=== PATIENT | female | born 1990 | race Caucasian/White ===

== ENCOUNTER 2017-01-24 17:35 | Emergency (ER) | payer OTHER ==
--- NOTE | 2017-01-24 18:08 | EDM.PDOC ---
ED HPI RENAL/ - General Chief Complaint: Genitourinary Problem Stated Complaint: BLEEDING/BACK PAIN Time Seen by Provider: 01/24/17 18:00 Source of Information: Reports: Patient History Limitations: Reports: No limitations - History of Present Illness INITIAL COMMENTS - FREE TEXT/NARRATIVE: HISTORY AND PHYSICAL: History of present illness: [Patient comes to the ER complaining of blood in her urine and low back and abdominal pain. Her urine was cloudy several days ago but this morning was clemencia blood. States that she has not had a UTI for several years. She does not have a local primary care provider established yet in [place]. She's not had fever or chills, no cough, shortness of breath or difficulty breathing. Her appetite has been normal. She's had no nausea or vomiting. No change in her stools. She's not had urinary urgency or frequency. Her period is 5 days late based on dates. Patient is on Suboxone which is prescribed and managed a specialist in [place].] Review of systems: As per history of present illness and below otherwise all systems reviewed and negative. Past medical history: As per history of present illness and as reviewed below otherwise noncontributory. Surgical history: As per history of present illness and as reviewed below otherwise noncontributory. Social history: No reported history of drug or alcohol abuse. Family history: As per history of present illness and as reviewed below otherwise noncontributory. Physical exam: HEENT: Atraumatic, normocephalic. mucous membranes pink and moist. Lungs: Clear to auscultation, breath sounds equal bilaterally, chest nontender. Heart: S1S2, regular rate and rhythm., negative for clicks, rubs, or JVD. Abdomen: Soft, nondistended. Tender with palpation over suprapubic area. Negative for masses or hepatosplenomegaly. Negative for costovertebral tenderness. Pelvis: Stable nontender. Genitourinary: Deferred. Rectal: Deferred. Extremities: Atraumatic, negative for cords or calf pain. Neurovascular unremarkable. Neuro: Awake, alert, oriented. Motor and sensory unremarkable throughout. Exam nonfocal. Diagnostics: [Urinalysis, urine culture, urine ] Impression: [UTI] Plan: [Urinalysis shows positive nitrites and presents of bacteria. Treat with Bactrim DS twice a day for the next 7 days. Urine culture is pending. Bactrim DS #14 sig: One by mouth twice a day for 7 days no refills. She is urged to use fluids and establish care with local primary care provider. All her questions are answered and concerns are addressed.] Definitive disposition and diagnosis as appropriate pending reevaluation and review of above. - Related Data Allergies/ADRs: Allergies Allergy/AdvReac Type Severity Reaction Status Date / Time Penicillins Allergy Hives Verified 01/24/17 18:10 Home Meds: Home Meds Buprenorphine/Naloxone [Suboxone 2 MG-0.5 MG] 1 tab PO BID 08/01/15 [History] Escitalopram [Lexapro] 1 tab PO DAILY 08/01/15 [History] Social & Family History - Tobacco Use Smoking Status *Q: Never Smoker - Recreational Drug Use Recreational Drug Use: Yes Drug Use in Last 12 Months: No Recreational Drug Type: Reports: Opium ED ROS GENERAL - Review of Systems Review Of Systems: ROS reveals no pertinent complaints other than HPI. ED EXAM, RENAL/ - Physical Exam Exam: See Below Course - Vital Signs Last Recorded V/S: Last Vital Signs Temp 97.9 F 01/24/17 18:58 Pulse 67 01/24/17 18:58 Resp 16 01/24/17 18:58 BP 116/77 01/24/17 18:58 Pulse Ox 97 01/24/17 18:58 - Orders/Labs/Meds Orders: Active Orders 24 hr Category Date Time Status CULTURE URINE [RM] Stat Lab 01/24/17 17:55 Received UA W/MICROSCOPIC [URIN] Stat Lab 01/24/17 17:55 Results Labs: Laboratory Tests 01/24/17 01/24/17 Range/Units 17:55 17:55 Urine Color BROWN Urine Appearance CLOUDY Urine pH 6.5 (5.0-8.0) Ur Specific [place] >= 1.030 (1.001-1.035) Urine Protein >=300 (NEGATIVE) mg/dL Urine Glucose (UA) NEGATIVE (NEGATIVE) mg/dL Urine Ketones TRACE H (NEGATIVE) mg/dL Urine Occult Blood LARGE H (NEGATIVE) Urine Nitrite POSITIVE H (NEGATIVE) Urine Bilirubin SMALL H (NEGATIVE) Urine Urobilinogen 1.0 (<2.0) EU/dL Ur Leukocyte Esterase SMALL (NEGATIVE) Urine HCG, Qual NEGATIVE (NEGATIVE) Departure - Departure Time of Disposition: 18:50 Disposition: Home, Self-Care 01 Condition: good Clinical Impression: UTI (urinary tract infection) Qualifiers: Urinary tract infection type: site unspecified Hematuria presence: without hematuria Qualified Code(s): N39.0 - Urinary tract infection, site not specified Instructions: Urinary Tract Infection, Adult, [id number] Referrals: PCP,None [Primary Care Provider] - Forms: ED Department Discharge Additional Instructions: The following information is given to patients seen in the emergency department who are being discharged to home. This information is to outline your options for follow-up care. We provide all patients seen in our emergency department with a follow-up referral. The need for follow-up, as well as the timing and circumstances, are variable depending upon the specifics of your emergency department visit. If you don't have a primary care physician on staff, we will provide you with a referral. We always advise you to contact your personal physician following an emergency department visit to inform them of the circumstance of the visit and for follow-up with them and/or the need for any referrals to a consulting specialist. The emergency department will also refer you to a specialist when appropriate. This referral assures that you have the opportunity for follow-up care with a specialist. All of these measure are taken in an effort to provide you with optimal care, which includes your follow-up. Under all circumstances we always encourage you to contact your private physician who remains a resource for coordinating your care. When calling for follow-up care, please make the office aware that this follow-up is from your recent emergency room visit. If for any reason you are refused follow-up, please contact the [facility] emergency department at and asked to speak to the emergency department charge nurse. [address] [id number] Establish care at the clinic listed above. Take antibiotics as prescribed. Push fluids. Return to ER as needed and as discussed. - My Orders Last 24 Hours: My Active Orders 01/24/17 17:55 CULTURE URINE [RM] Stat UA W/MICROSCOPIC [URIN] Stat - Assessment/Plan Last 24 Hours: My Active Orders 01/24/17 17:55 CULTURE URINE [RM] Stat UA W/MICROSCOPIC [URIN] Stat
[2017-01-24 19:01] VITALS: BP 116/77
== END 2017-01-24 19:01 | disposition home or self-care (01) ==
LOC: MW.ED 17:35
DX: N39.0 Urinary tract infection, site not specified (principal); Z88.0 Allergy status to penicillin; Z79.899 Other long term (current) drug therapy
CPT/HCPCS: 81001; 81025; 87086; 99283

== ENCOUNTER → 2017-03-10 | Outpatient (CLI) | payer OTHER | LOC: MW.CHFP 15:16 | PROVIDERS: ATTEND Family Medicine | DX: R10.2 Pelvic and perineal pain (principal) | CPT/HCPCS: 81003; 87086 ==

== ENCOUNTER → 2017-03-18 | Outpatient (CLI) | payer OTHER | LOC: MW.CHFP 14:52 | PROVIDERS: ATTEND Family Medicine | DX: R10.2 Pelvic and perineal pain (principal) | CPT/HCPCS: 81001; 87086 ==

== ENCOUNTER → 2017-03-30 | Outpatient (CLI) | payer OTHER ==
[2017-03-30 13:54] LABS: CHLORIDE,CL 108 mmol/L (98-110); SODIUM,NA 142 mmol/L (136-146)
== END | disposition home or self-care (01) ==
LOC: MW.CHFP 12:56
PROVIDERS: ATTEND Family Medicine
DX: Z00.00 Encounter for general adult medical examination without abnormal findings (principal); N92.6 Irregular menstruation, unspecified; K58.9 Irritable bowel syndrome, unspecified
CPT/HCPCS: 36415; 80053; 80061; 82670; 83001; 83002; 84144; 84443; 85027

== ENCOUNTER 2019-02-01 09:02 | Emergency (ER) | payer BC, OTHER ==
[2019-02-01] MEDS ORDERED: Phenazopyridine 200 MG Tab PO ONE (09:26)
--- NOTE | 2019-02-01 09:53 | EDM.PDOC ---
ED HPI GENERAL MEDICAL PROBLEM - General Chief Complaint: Genitourinary Problem Stated Complaint: UTI Time Seen by Provider: 02/01/19 09:09 Source of Information: Reports: Patient History Limitations: Reports: No Limitations - History of Present Illness INITIAL COMMENTS - FREE TEXT/NARRATIVE: History of present illness: []Patient started having discomfort with urination, blood in frequency this morning. She's had UTIs in the past and it feels the same. She denies measuring any fevers or chills but feels feverish. Denies , nausea, vomiting or diarrhea. She denies , vomiting diarrhea or nausea Review of systems: As per history of present illness and below otherwise all systems reviewed and negative. Past medical history: As per history of present illness and as reviewed below otherwise noncontributory. Surgical history: As per history of present illness and as reviewed below otherwise noncontributory. Social history: No reported history of drug or alcohol abuse. Family history: As per history of present illness and as reviewed below otherwise noncontributory. Physical exam: General: Well developed, well nourished in NAD HEENT: Atraumatic, normocephalic, pupils reactive, negative for conjunctival pallor or scleral icterus, mucous membranes moist, throat clear, neck supple, nontender, trachea midline. Lungs: Clear to auscultation, breath sounds equal bilaterally, chest nontender. Heart: S1S2, regular, negative for clicks, rubs, or JVD. Abdomen: NABS, Soft, nondistended, nontender. Negative for masses or hepatosplenomegaly. Negative for costovertebral tenderness. Pelvis: Stable nontender. Genitourinary: Deferred. Rectal: Deferred. Extremities: Atraumatic, negative for cords or calf pain. Neurovascular unremarkable. Neuro: Awake, alert, oriented. Cranial nerves II through XII unremarkable. Cerebellum unremarkable. Motor and sensory unremarkable throughout. Exam nonfocal. Skin:warm and dry Diagnostics: UA, urine culture, hCG Therapeutics: Perineum ED Course: Stable Impression: UTI Prescriptions: Bactrim, Pyridium Plan: Increase fluids, Tylenol, Motrin, follow-up with primary care. Take meds as directed. Definitive disposition and diagnosis as appropriate pending reevaluation and review of above. Pelvic Pain Score (Numeric/FACES): 3 - Related Data Allergies Allergy/AdvReac Type Severity Reaction Status Date / Time Penicillins Allergy Hives Verified 01/24/17 18:10 Home Meds: Home Meds Buprenorphine/Naloxone [Suboxone 2 MG-0.5 MG] 1 tab PO BID 08/01/15 [History] Escitalopram [Lexapro] 1 tab PO DAILY 08/01/15 [History] Dicyclomine [Bentyl] 20 mg PO QIDACANDBED 02/01/19 [History] Phenazopyridine HCl [Pyridium] 200 mg PO TID #9 tablet 02/01/19 [Rx] Sulfamethoxazole/Trimethoprim [Bactrim Ds Tablet] 1 each PO BID #20 tablet 02/01 [Rx] Past Medical History HEENT History: Reports: None Cardiovascular History: Reports: None Respiratory History: Reports: None Gastrointestinal History: Reports: Other (See Below) Other Gastrointestinal History: Ulcerative Colitis as a young kid Genitourinary History: Reports: None TOE STRIPPER History: Reports: Musculoskeletal History: Reports: None Neurological History: Reports: None Psychiatric History: Reports: Addiction, Other (See Below) Other Psychiatric History: History of addiction- currently taking subutex Endocrine/Metabolic History: Reports: None Hematologic History: Reports: None Immunologic History: Reports: None Oncologic (Cancer) History: Reports: None Dermatologic History: Reports: None - Infectious Disease History Infectious Disease History: Reports: None - Past Surgical History Head Surgeries/Procedures: Reports: None HEENT Surgical History: Reports: None Cardiovascular Surgical History: Reports: None Respiratory Surgical History: Reports: None Endocrine Surgical History: Reports: None Neurological Surgical History: Reports: None Musculoskeletal Surgical History: Reports: None Dermatological Surgical History: Reports: None Social & Family History - Family History Family Medical History: Noncontributory - Caffeine Use Caffeine Use: Reports: None - Recreational Drug Use Recreational Drug Use: No ED ROS GENERAL - Review of Systems Review Of Systems: ROS reveals no pertinent complaints other than HPI. ED EXAM, RENAL/ - Physical Exam Exam: See Below (See history of present illness) Course - Vital Signs Last Recorded V/S: Last Vital Signs Temp 97.1 F 02/01/19 09:21 Pulse 83 02/01/19 09:21 Resp 15 02/01/19 09:21 BP 104/71 02/01/19 09:21 Pulse Ox 99 02/01/19 09:21 - Orders/Labs/Meds Orders: Active Orders 24 hr Category Date Time Status CULTURE URINE [RM] Routine Lab 02/01/19 09:12 Received Labs: Laboratory Tests 02/01/19 02/01/19 Range/Units 09:12 09:12 Urine Color RED Urine Appearance HAZY Urine pH 6.0 (5.0-8.0) Ur Specific [place] >= 1.030 (1.001-1.035) Urine Protein 100 H (NEGATIVE) mg/dL Urine Glucose (UA) NEGATIVE (NEGATIVE) mg/dL Urine Ketones NEGATIVE (NEGATIVE) mg/dL Urine Occult Blood LARGE H (NEGATIVE) Urine Nitrite NEGATIVE (NEGATIVE) Urine Bilirubin SMALL H (NEGATIVE) Urine Ictotest NEGATIVE Urine Urobilinogen 1.0 (<2.0) EU/dL Ur Leukocyte Esterase SMALL H (NEGATIVE) Urine RBC TOO NUMEROUS TO CT H (0-2/HPF) Urine WBC 8-10 (0-5/HPF) Ur Epithelial Cells OCCASIONAL (NONE-FEW) Urine Bacteria RARE (NEGATIVE) Urinalysis Comment Urine HCG, Qual NEGATIVE (NEGATIVE) Meds: Medications Discontinued Medications Generic Name Dose Route Start Last Admin Trade Name Freq PRN Reason Stop Dose Admin Phenazopyridine HCl 200 mg 02/01/19 09:26 02/01/19 09:31 Pyridium PO 02/01/19 09:27 200 mg ONETIME ONE Administration Departure - Departure Time of Disposition: 09:52 Disposition: Home, Self-Care 01 Condition: Good Clinical Impression: UTI (urinary tract infection) Qualifiers: Urinary tract infection type: site unspecified Hematuria presence: with hematuria Qualified Code(s): N39.0 - Urinary tract infection, site not specified - Discharge Information *PRESCRIPTION DRUG MONITORING PROGRAM REVIEWED*: No *COPY OF PRESCRIPTION DRUG MONITORING REPORT IN PATIENT TOSHIA: No Prescriptions: Phenazopyridine HCl [Pyridium] 200 mg PO TID #9 tablet Sulfamethoxazole/Trimethoprim [Bactrim Ds Tablet] 1 each PO BID #20 tablet Referrals: Chante Oscar MD [Primary Care Provider] - Forms: ED Department Discharge Additional Instructions: The following information is given to patients seen in the emergency department who are being discharged to home. This information is to outline your options for follow-up care. We provide all patients seen in our emergency department with a follow-up referral. The need for follow-up, as well as the timing and circumstances, are variable depending upon the specifics of your emergency department visit. If you don't have a primary care physician on staff, we will provide you with a referral. We always advise you to contact your personal physician following an emergency department visit to inform them of the circumstance of the visit and for follow-up with them and/or the need for any referrals to a consulting specialist. The emergency department will also refer you to a specialist when appropriate. This referral assures that you have the opportunity for follow-up care with a specialist. All of these measure are taken in an effort to provide you with optimal care, which includes your follow-up. Under all circumstances we always encourage you to contact your private physician who remains a resource for coordinating your care. When calling for follow-up care, please make the office aware that this follow-up is from your recent emergency room visit. If for any reason you are refused follow-up, please contact the [facility] Emergency Department at and asked to speak to the emergency department charge nurse. Take meds as directed, follow up with your primary care physician, return to ER if symptoms worsen or change. [facility] [address] [place] [id number] - My Orders Last 24 Hours: My Active Orders 02/01/19 09:12 CULTURE URINE [RM] Routine - Assessment/Plan Last 24 Hours: My Active Orders 02/01/19 09:12 CULTURE URINE [RM] Routine
[2019-02-01 10:13] VITALS: BP 123/63
== END 2019-02-01 10:07 | disposition home or self-care (01) ==
LOC: MW.ED 09:02
DX: N39.0 Urinary tract infection, site not specified (principal); Z79.899 Other long term (current) drug therapy; Z88.0 Allergy status to penicillin
CPT/HCPCS: 81001; 81025; 87086; 87088; 87186; 99283; A9270

== ENCOUNTER 2020-05-03 05:47 | Emergency (ER) | payer BC ==
[2020-05-03] MEDS ORDERED: Sodium Chloride 0.9% 1,000 ML IV ONE (06:00)
[2020-05-03] MEDS ORDERED: Sodium Chloride 0.9% 10 ML Syringe FLUSH PRN (06:00)
[2020-05-03] MEDS ORDERED: Ondansetron 4 MG/2 ML SDV IVPUSH ONE (06:00)
[2020-05-03] MEDS ORDERED: Ketorolac 15 MG/ML SDV IVPUSH ONE (06:00)
[2020-05-03] MEDS ORDERED: Sodium Chloride 0.9% 2.5 ML Syringe FLUSH PRN (06:00)
--- NOTE | 2020-05-03 06:07 | EDM.PDOC ---
ED HPI GENERAL MEDICAL PROBLEM - General Chief Complaint: Flank Pain Stated Complaint: KIDNEY PAIN Time Seen by Provider: 05/03/20 05:49 Source of Information: Reports: Patient History Limitations: Reports: No Limitations - History of Present Illness INITIAL COMMENTS - FREE TEXT/NARRATIVE: History of present illness: [Patient is 29-year-old female who presents with multiple complaints. She states that she was treated with Macrobid for a UTI about 2 weeks ago but does not think that her symptoms never completely resolved and is concerned about recurrent UTI. She complains of fever since yesterday with associated headache and body aches. Also complains of some bilateral lower back pain and hematuria and dysuria. The dysuria recurred yesterday. Denies chest pain. States that she had a mild cold last week but all her URI symptoms have resolved. Denies any known COVID-19 exposure. Has history of IBS. Has not taken any pain meds this morning.] Review of systems: As per history of present illness and below otherwise all systems reviewed and negative. Past medical history: As per history of present illness and as reviewed below otherwise noncontributory. Surgical history: As per history of present illness and as reviewed below otherwise noncontributory. Social history: No reported history of drug or alcohol abuse. Family history: As per history of present illness and as reviewed below otherwise noncontributory. Physical exam: General: Awake, alert, mild distress, A&O X3. HEENT: Atraumatic, normocephalic, pupils reactive, negative for conjunctival pallor or scleral icterus, mucous membranes moist, throat clear, neck supple, nontender, trachea midline. Lungs: Clear to auscultation, breath sounds equal bilaterally, chest nontender. Heart: tachycardic, normal S1S2, no JVD. Abdomen: Soft, nondistended, nontender. Negative for masses or hepatosplenomegaly. Negative for costovertebral tenderness. Pelvis: Stable nontender. Genitourinary: Deferred. Rectal: Deferred. Extremities: Atraumatic, no edema, Neurovascular unremarkable. Neuro: Motor and sensory grossly intact throughout. Exam nonfocal. Diagnostics: [] Therapeutics: [] Impression: [] Plan: [] Definitive disposition and diagnosis as appropriate pending reevaluation and review of above. generalized Pain Score (Numeric/FACES): 9 - Related Data Allergies Allergy/AdvReac Type Severity Reaction Status Date / Time Penicillins Allergy Hives Verified 05/03/20 06:19 Home Meds: Home Meds Buprenorphine/Naloxone [Suboxone 2 MG-0.5 MG] 1 tab PO BID 08/01/15 [History] Escitalopram [Lexapro] 20 mg PO DAILY 08/01/15 [History] Dicyclomine [Bentyl] 20 mg PO QIDACANDBED 02/01/19 [History] Phenazopyridine HCl [Pyridium] 100 mg PO BID #6 tablet 05/03/20 [Rx] cephALEXin [Keflex] 500 mg PO Q8H #30 cap 05/03/20 [Rx] Past Medical History HEENT History: Reports: None Cardiovascular History: Reports: None Respiratory History: Reports: None Gastrointestinal History: Reports: Other (See Below) Other Gastrointestinal History: Ulcerative Colitis as a young kid Genitourinary History: Reports: None [facility] [facility] History: Reports: Musculoskeletal History: Reports: None Neurological History: Reports: None Psychiatric History: Reports: Addiction, Other (See Below) Other Psychiatric History: History of addiction- currently taking subutex Endocrine/Metabolic History: Reports: None Hematologic History: Reports: None Immunologic History: Reports: None Oncologic (Cancer) History: Reports: None Dermatologic History: Reports: None - Infectious Disease History Infectious Disease History: Reports: None - Past Surgical History Head Surgeries/Procedures: Reports: None HEENT Surgical History: Reports: None Cardiovascular Surgical History: Reports: None Respiratory Surgical History: Reports: None Endocrine Surgical History: Reports: None Neurological Surgical History: Reports: None Musculoskeletal Surgical History: Reports: None Dermatological Surgical History: Reports: None Social & Family History - Family History Family Medical History: Noncontributory - Caffeine Use Caffeine Use: Reports: None ED ROS GENERAL - Review of Systems Review Of Systems: Comprehensive ROS is negative, except as noted in HPI. ED EXAM, RENAL/ - Physical Exam Exam: See Below (see h and p) Course - Vital Signs Text/Narrative:: Patient initially presented tachycardic, this improved after getting fluids and IV Rocephin. Urinalysis suggests recurrence/persistence of UTI. She has a mildly elevated white blood cell count, otherwise labs are reassuring, she is nontoxic in appearance, and feeling improvement overall prior to being discharged. Was sent home with a 10-day prescription for Keflex along with Pyridium. Strict return precautions provided should she develop new or worsening symptoms including persistently high fever, uncontrollable nausea vomiting, severe worsening pain, etc. Also encouraged patient to use probiotics. She is agreeable with this plan, stable at the time of discharge. Last Recorded V/S: Last Vital Signs Temp 38.4 C H 05/03/20 05:52 Pulse 110 H 05/03/20 05:52 Resp 18 05/03/20 05:52 BP 129/72 05/03/20 05:52 Pulse Ox 96 05/03/20 05:52 - Orders/Labs/Meds Orders: Active Orders 24 hr Category Date Time Status Sodium Chloride 0.9% [Saline Flush] Med 05/03/20 06:00 Active 10 ml FLUSH ASDIRECTED PRN Sodium Chloride 0.9% [Saline Flush] Med 05/03/20 06:00 Active 2.5 ml FLUSH ASDIRECTED PRN Saline Lock Insert [OM.PC] Stat Oth 05/03/20 06:01 Ordered Medication Orders Sodium Chloride (Saline Flush) 10 ml FLUSH ASDIRECTED PRN PRN Reason: Keep Vein Open Sodium Chloride (Saline Flush) 2.5 ml FLUSH ASDIRECTED PRN PRN Reason: Keep Vein Open Labs: Laboratory Tests 05/03/20 05/03/20 05/03/20 Range/Units 06:10 06:10 06:17 WBC 11.85 H (4.0-11.0) K/uL RBC 4.05 L (4.30-5.90) M/uL Hgb 12.5 (12.0-16.0) g/dL Hct 37.3 (36.0-46.0) % MCV 92.1 (80.0-98.0) fL MCH 30.9 (27.0-32.0) pg MCHC 33.5 (31.0-37.0) g/dL RDW Std Deviation 38.8 (28.0-62.0) fl RDW Coeff of Miesha 12 (11.0-15.0) % Plt Count 194 (150-400) K/uL MPV 11.10 (7.40-12.00) fL Neut % (Auto) 87.6 H (48.0-80.0) % Lymph % (Auto) 6.3 L (16.0-40.0) % Stephens % (Auto) 5.8 (0.0-15.0) % Eos % (Auto) 0.2 (0.0-7.0) % Baso % (Auto) 0.1 (0.0-1.5) % Neut # (Auto) 10.4 H (1.4-5.7) K/uL Lymph # (Auto) 0.8 (0.6-2.4) K/uL Stephens # (Auto) 0.7 (0.0-0.8) K/uL Eos # (Auto) 0.0 (0.0-0.7) K/uL Baso # (Auto) 0.0 (0.0-0.1) K/uL Sodium (136-145) mmol/L Potassium (3.5-5.1) mmol/L Chloride (98-107) mmol/L Carbon Dioxide (21.0-32.0) mmol/L BUN (7.0-18.0) mg/dL Creatinine (0.6-1.0) mg/dL Est Cr Clr Drug Dosing mL/min Estimated GFR (MDRD) ml/min Glucose (74-106) mg/dL Calcium (8.5-10.1) mg/dL Total Bilirubin (0.2-1.0) mg/dL AST (15-37) IU/L ALT (14-63) IU/L Alkaline Phosphatase (46-116) U/L Total Protein (6.4-8.2) g/dL Albumin (3.4-5.0) g/dL Globulin (2.6-4.0) g/dL Albumin/Globulin Ratio (0.9-1.6) Urine Color YELLOW Urine Appearance CLEAR Urine pH 5.5 (5.0-8.0) Ur Specific Chappell 1.025 (1.001-1.035) Urine Protein TRACE H (NEGATIVE) mg/dL Urine Glucose (UA) NEGATIVE (NEGATIVE) mg/dL Urine Ketones TRACE H (NEGATIVE) mg/dL Urine Occult Blood MODERATE H (NEGATIVE) Urine Nitrite NEGATIVE (NEGATIVE) Urine Bilirubin NEGATIVE (NEGATIVE) Urine Urobilinogen 0.2 (<2.0) EU/dL Ur Leukocyte Esterase SMALL H (NEGATIVE) Urine RBC 8-10 (0-2/HPF) Urine WBC 15-20 (0-5/HPF) Ur Epithelial Cells FEW (NONE-FEW) Urine Bacteria FEW (NEGATIVE) Urine HCG, Qual NEGATIVE (NEGATIVE) 05/03/20 Range/Units 06:17 WBC (4.0-11.0) K/uL RBC (4.30-5.90) M/uL Hgb (12.0-16.0) g/dL Hct (36.0-46.0) % MCV (80.0-98.0) fL MCH (27.0-32.0) pg MCHC (31.0-37.0) g/dL RDW Std Deviation (28.0-62.0) fl RDW Coeff of Miesha (11.0-15.0) % Plt Count (150-400) K/uL MPV (7.40-12.00) fL Neut % (Auto) (48.0-80.0) % Lymph % (Auto) (16.0-40.0) % Stephens % (Auto) (0.0-15.0) % Eos % (Auto) (0.0-7.0) % Baso % (Auto) (0.0-1.5) % Neut # (Auto) (1.4-5.7) K/uL Lymph # (Auto) (0.6-2.4) K/uL Stephens # (Auto) (0.0-0.8) K/uL Eos # (Auto) (0.0-0.7) K/uL Baso # (Auto) (0.0-0.1) K/uL Sodium 138 (136-145) mmol/L Potassium 3.1 L (3.5-5.1) mmol/L Chloride 100 (98-107) mmol/L Carbon Dioxide 27.0 (21.0-32.0) mmol/L BUN 17 (7.0-18.0) mg/dL Creatinine 1.0 (0.6-1.0) mg/dL Est Cr Clr Drug Dosing 68.83 mL/min Estimated GFR (MDRD) > 60.0 ml/min Glucose 127 H (74-106) mg/dL Calcium 9.1 (8.5-10.1) mg/dL Total Bilirubin 0.8 (0.2-1.0) mg/dL AST 19 (15-37) IU/L ALT 14 (14-63) IU/L Alkaline Phosphatase 71 (46-116) U/L Total Protein 7.6 (6.4-8.2) g/dL Albumin 4.3 (3.4-5.0) g/dL Globulin 3.3 (2.6-4.0) g/dL Albumin/Globulin Ratio 1.3 (0.9-1.6) Urine Color Urine Appearance Urine pH (5.0-8.0) Ur Specific Chappell (1.001-1.035) Urine Protein (NEGATIVE) mg/dL Urine Glucose (UA) (NEGATIVE) mg/dL Urine Ketones (NEGATIVE) mg/dL Urine Occult Blood (NEGATIVE) Urine Nitrite (NEGATIVE) Urine Bilirubin (NEGATIVE) Urine Urobilinogen (<2.0) EU/dL Ur Leukocyte Esterase (NEGATIVE) Urine RBC (0-2/HPF) Urine WBC (0-5/HPF) Ur Epithelial Cells (NONE-FEW) Urine Bacteria (NEGATIVE) Urine HCG, Qual (NEGATIVE) Meds: Medications Generic Name Dose Route Start Last Admin Trade Name Frefranklin PRN Reason Stop Dose Admin Sodium Chloride 10 ml 05/03/20 06:00 Saline Flush FLUSH ASDIRECTED PRN Keep Vein Open Sodium Chloride 2.5 ml 05/03/20 06:00 Saline Flush FLUSH ASDIRECTED PRN Keep Vein Open Discontinued Medications Generic Name Dose Route Start Last Admin Trade Name Jeanine PRN Reason Stop Dose Admin Ceftriaxone Sodium 1 gm 05/03/20 06:38 Rocephin IVPUSH 05/03/20 06:39 ONETIME ONE Sodium Chloride 1,000 mls @ 999 mls/hr 05/03/20 06:00 05/03/20 06:19 Normal Saline IV 05/03/20 07:00 999 mls/hr .Bolus ONE Administration Ketorolac Tromethamine 15 mg 05/03/20 06:00 05/03/20 06:25 Toradol IVPUSH 05/03/20 06:01 15 mg ONETIME ONE Administration Ondansetron HCl 4 mg 05/03/20 06:00 05/03/20 06:22 Zofran IVPUSH 05/03/20 06:01 4 mg ONETIME ONE Administration Departure - Departure Time of Disposition: 07:03 Disposition: Home, Self-Care 01 Condition: Good Clinical Impression: UTI, Urinary tract infectious disease, Pyelonephritis - Discharge Information Prescriptions: cephALEXin [Keflex] 500 mg PO Q8H #30 cap Phenazopyridine HCl [Pyridium] 100 mg PO BID #6 tablet Instructions: Pyelonephritis, Adult, [place] Referrals: Chante Oscar MD [Primary Care Provider] - Forms: ED Department Discharge Additional Instructions: Follow-up with primary care doctor. Take all medications as prescribed. Return to the ED with any new or worsening symptoms. The following information is given to patients seen in the emergency department who are being discharged to home. This information is to outline your options for follow-up care. We provide all patients seen in our emergency department with a follow-up referral. The need for follow-up, as well as the timing and circumstances, are variable depending upon the specifics of your emergency department visit. If you don't have a primary care physician on staff, we will provide you with a referral. We always advise you to contact your personal physician following an emergency department visit to inform them of the circumstance of the visit and for follow-up with them and/or the need for any referrals to a consulting specialist. The emergency department will also refer you to a specialist when appropriate. This referral assures that you have the opportunity for follow-up care with a specialist. All of these measure are taken in an effort to provide you with optimal care, which includes your follow-up. Under all circumstances we always encourage you to contact your private physician who remains a resource for coordinating your care. When calling for follow-up care, please make the office aware that this follow-up is from your recent emergency room visit. If for any reason you are refused follow-up, please contact the [facility] Emergency Department at and asked to speak to the emergency department charge nurse. Sepsis Event Note (ED) - Focused Exam Vital Signs: Vital Signs Temp Pulse Resp BP Pulse Ox 05/03/20 05:52 38.4 C H 110 H 18 129/72 96 - My Orders Last 24 Hours: My Active Orders 05/03/20 06:00 Sodium Chloride 0.9% [Saline Flush] 10 ml FLUSH ASDIRECTED PRN Sodium Chloride 0.9% [Saline Flush] 2.5 ml FLUSH ASDIRECTED PRN 05/03/20 06:01 Saline Lock Insert [OM.PC] Stat - Assessment/Plan Last 24 Hours: My Active Orders 05/03/20 06:00 Sodium Chloride 0.9% [Saline Flush] 10 ml FLUSH ASDIRECTED PRN Sodium Chloride 0.9% [Saline Flush] 2.5 ml FLUSH ASDIRECTED PRN 05/03/20 06:01 Saline Lock Insert [OM.PC] Stat
[2020-05-03] MEDS ORDERED: cefTRIAXone 1 GM Vial IVPUSH ONE (06:38)
[2020-05-03 06:56] LABS: BLOOD UREA NITROGEN,BUN 17 mg/dL (7.0-18.0); CHLORIDE,CL 100 mmol/L (98-107); GLUCOSE RANDOM 127 mg/dL (74-106); POTASSIUM,K 3.1 mmol/L (3.5-5.1); SODIUM,NA 138 mmol/L (136-145)
--- NOTE | 2020-05-03 06:57 | CR ---
Chest: Frontal view of the chest was obtained. Comparison: No prior chest imaging is available. Heart size and mediastinum are normal. Scoliosis is noted within the spine. Lungs are clear no acute parenchymal change. Impression: 1. Scoliosis. 2. Nothing acute is seen on frontal chest x-ray. Diagnostic code #2 This report was dictated in MDT
[2020-05-03] MEDS ORDERED: Acetaminophen 325 MG Tab PO ONE (07:05)
[2020-05-03] MEDS ORDERED: Lidocaine 1% 2 ML ONE (07:40)
[2020-05-03] MEDS ORDERED: Water For Injection, Sterile 20 ML ONE (07:49)
[2020-05-03] MEDS ORDERED: cefTRIAXone 1 GM Vial ONE (07:49)
[2020-05-03] MEDS ORDERED: Water For Injection, Sterile 50 ML SDV INJECT STA (07:49)
[2020-05-03 08:10] VITALS: BP 110/65; PULSE 81
== END 2020-05-03 08:00 | disposition home or self-care (01) ==
LOC: MW.ED 05:47
DX: N12 Tubulo-interstitial nephritis, not specified as acute or chronic (principal); Z88.0 Allergy status to penicillin; Z79.899 Other long term (current) drug therapy
CPT/HCPCS: 36415; 71045; 80053; 81001; 81025; 85025; 96361; 96374; 96375; 99284; A9270; J1885; J2405; J7030; 99285; J0696

== ENCOUNTER 2020-05-03 17:04 | Emergency (ER) | payer BC ==
[2020-05-03] MEDS ORDERED: Sodium Chloride 0.9% 1,000 ML IV ONE (17:39)
[2020-05-03] MEDS ORDERED: Sodium Chloride 0.9% 10 ML Syringe FLUSH PRN (17:39)
[2020-05-03] MEDS ORDERED: Ketorolac 15 MG/ML SDV IVPUSH ONE (17:39)
[2020-05-03] MEDS ORDERED: Sodium Chloride 0.9% 2.5 ML Syringe FLUSH PRN (17:39)
--- NOTE | 2020-05-03 17:46 | EDM.PDOC ---
<Keron Harry - Last Filed: 05/03/20 20:50> ED HPI GENERAL MEDICAL PROBLEM - General Chief Complaint: Genitourinary Problem Stated Complaint: FEVER POSSIBLE UTI Time Seen by Provider: 05/03/20 17:08 - Related Data Allergies Allergy/AdvReac Type Severity Reaction Status Date / Time Penicillins Allergy Hives Verified 05/03/20 17:30 Home Meds: Home Meds Buprenorphine/Naloxone [Suboxone 2 MG-0.5 MG] 1 tab PO BID 08/01/15 [History] Escitalopram [Lexapro] 20 mg PO DAILY 08/01/15 [History] Dicyclomine [Bentyl] 20 mg PO QIDACANDBED 02/01/19 [History] Phenazopyridine HCl [Pyridium] 100 mg PO BID #6 tablet 05/03/20 [Rx] cephALEXin [Keflex] 500 mg PO Q8H #30 cap 05/03/20 [Rx] Course - Vital Signs Text/Narrative:: Patient is feeling better. Her lab work is reassuring. UA again confirms presence of likely UTI. She already received her first dose of Rocephin this morning. picked up the prescription for Keflex. I told her to take his medications as previously prescribed and to continue use Tylenol and or Motrin as needed and directed at home for fever and pain control. Vital signs are stable, she is nontoxic in appearance, gave her instructions regarding pyelonephritis, she is comfortable and agreeable this plan and stable at discharge. Last Recorded V/S: Last Vital Signs Temp 97.8 F 05/03/20 21:05 Pulse 68 05/03/20 21:05 Resp 18 05/03/20 21:05 BP 96/52 L 05/03/20 21:05 Pulse Ox 97 05/03/20 21:05 - Orders/Labs/Meds Orders: Active Orders 24 hr Category Date Time Status CULTURE BLOOD [BC] Stat Lab 05/03/20 16:57 Received CULTURE BLOOD [BC] Stat Lab 05/03/20 18:13 Received Blood Culture x2 Reflex Set [OM.PC] Stat Oth 05/03/20 17:52 Ordered Saline Lock Insert [OM.PC] Stat Oth 05/03/20 17:39 Ordered Labs: Laboratory Tests 05/03/20 05/03/20 05/03/20 Range/Units 18:05 18:05 18:10 WBC 9.69 (4.0-11.0) K/uL RBC 3.55 L (4.30-5.90) M/uL Hgb 11.0 L (12.0-16.0) g/dL Hct 33.0 L (36.0-46.0) % MCV 93.0 (80.0-98.0) fL MCH 31.0 (27.0-32.0) pg MCHC 33.3 (31.0-37.0) g/dL RDW Std Deviation 42.0 (28.0-62.0) fl RDW Coeff of Miesha 12 (11.0-15.0) % Plt Count 158 (150-400) K/uL MPV 11.00 (7.40-12.00) fL Neut % (Auto) 86.0 H (48.0-80.0) % Lymph % (Auto) 6.2 L (16.0-40.0) % [place] % (Auto) 7.6 (0.0-15.0) % Eos % (Auto) 0.1 (0.0-7.0) % Baso % (Auto) 0.1 (0.0-1.5) % Neut # (Auto) 8.3 H (1.4-5.7) K/uL Lymph # (Auto) 0.6 (0.6-2.4) K/uL [place] # (Auto) 0.7 (0.0-0.8) K/uL Eos # (Auto) 0.0 (0.0-0.7) K/uL Baso # (Auto) 0.0 (0.0-0.1) K/uL Nucleated RBC % 0.0 /100WBC Nucleated RBCs # 0 K/uL Sodium (136-145) mmol/L Potassium (3.5-5.1) mmol/L Chloride (98-107) mmol/L Carbon Dioxide (21.0-32.0) mmol/L BUN (7.0-18.0) mg/dL Creatinine (0.6-1.0) mg/dL Est Cr Clr Drug Dosing Estimated GFR (MDRD) ml/min Glucose (74-106) mg/dL Calcium (8.5-10.1) mg/dL Total Bilirubin (0.2-1.0) mg/dL AST (15-37) IU/L ALT (14-63) IU/L Alkaline Phosphatase (46-116) U/L Total Protein (6.4-8.2) g/dL Albumin (3.4-5.0) g/dL Globulin (2.6-4.0) g/dL Albumin/Globulin Ratio (0.9-1.6) Urine Color ORANGE Urine Appearance SLT CLOUDY Urine pH 5.0 (5.0-8.0) Ur Specific [place] 1.025 (1.001-1.035) Urine Protein 100 H (NEGATIVE) mg/dL Urine Glucose (UA) 100 H (NEGATIVE) mg/dL Urine Ketones TRACE H (NEGATIVE) mg/dL Urine Occult Blood TRACE-INTACT H (NEGATIVE) Urine Nitrite POSITIVE H (NEGATIVE) Urine Bilirubin SMALL H (NEGATIVE) Urine Ictotest POSITIVE Urine Urobilinogen 4.0 H (<2.0) EU/dL Ur Leukocyte Esterase SMALL H (NEGATIVE) Urine RBC 1-3 (0-2/HPF) Urine WBC 10-15 (0-5/HPF) Ur Epithelial Cells FEW (NONE-FEW) Urine Bacteria 2+ H (NEGATIVE) Urine Mucus LIGHT (NONE-MOD) Urinalysis Comment Urine HCG, Qual NEGATIVE (NEGATIVE) 05/03/20 Range/Units 18:10 WBC (4.0-11.0) K/uL RBC (4.30-5.90) M/uL Hgb (12.0-16.0) g/dL Hct (36.0-46.0) % MCV (80.0-98.0) fL MCH (27.0-32.0) pg MCHC (31.0-37.0) g/dL RDW Std Deviation (28.0-62.0) fl RDW Coeff of Miesha (11.0-15.0) % Plt Count (150-400) K/uL MPV (7.40-12.00) fL Neut % (Auto) (48.0-80.0) % Lymph % (Auto) (16.0-40.0) % [place] % (Auto) (0.0-15.0) % Eos % (Auto) (0.0-7.0) % Baso % (Auto) (0.0-1.5) % Neut # (Auto) (1.4-5.7) K/uL Lymph # (Auto) (0.6-2.4) K/uL [place] # (Auto) (0.0-0.8) K/uL Eos # (Auto) (0.0-0.7) K/uL Baso # (Auto) (0.0-0.1) K/uL Nucleated RBC % /100WBC Nucleated RBCs # K/uL Sodium 136 (136-145) mmol/L Potassium 3.0 L (3.5-5.1) mmol/L Chloride 102 (98-107) mmol/L Carbon Dioxide 25.9 (21.0-32.0) mmol/L BUN 13 (7.0-18.0) mg/dL Creatinine 0.8 (0.6-1.0) mg/dL Est Cr Clr Drug Dosing TNP Estimated GFR (MDRD) > 60.0 ml/min Glucose 122 H (74-106) mg/dL Calcium 8.4 L (8.5-10.1) mg/dL Total Bilirubin 0.5 (0.2-1.0) mg/dL AST 15 (15-37) IU/L ALT 13 L (14-63) IU/L Alkaline Phosphatase 52 (46-116) U/L Total Protein 6.3 L (6.4-8.2) g/dL Albumin 3.5 (3.4-5.0) g/dL Globulin 2.8 (2.6-4.0) g/dL Albumin/Globulin Ratio 1.2 (0.9-1.6) Urine Color Urine Appearance Urine pH (5.0-8.0) Ur Specific [place] (1.001-1.035) Urine Protein (NEGATIVE) mg/dL Urine Glucose (UA) (NEGATIVE) mg/dL Urine Ketones (NEGATIVE) mg/dL Urine Occult Blood (NEGATIVE) Urine Nitrite (NEGATIVE) Urine Bilirubin (NEGATIVE) Urine Ictotest Urine Urobilinogen (<2.0) EU/dL Ur Leukocyte Esterase (NEGATIVE) Urine RBC (0-2/HPF) Urine WBC (0-5/HPF) Ur Epithelial Cells (NONE-FEW) Urine Bacteria (NEGATIVE) Urine Mucus (NONE-MOD) Urinalysis Comment Urine HCG, Qual (NEGATIVE) Meds: Medications Discontinued Medications Generic Name Dose Route Start Last Admin Trade Name Jamesq PRN Reason Stop Dose Admin Acetaminophen 1,000 mg 05/03/20 19:05 05/03/20 19:35 Tylenol Extra Strength PO 05/03/20 19:06 1,000 mg ONETIME ONE Administration Sodium Chloride 1,000 mls @ 999 mls/hr 05/03/20 17:39 05/03/20 18:23 Normal Saline IV 05/03/20 18:39 999 mls/hr .Bolus ONE Administration Ketorolac Tromethamine 15 mg 05/03/20 17:39 05/03/20 18:20 Toradol IVPUSH 05/03/20 17:40 15 mg ONETIME ONE Administration Ketorolac Tromethamine 15 mg 05/03/20 19:07 05/03/20 19:35 Toradol IVPUSH 05/03/20 19:08 15 mg ONETIME ONE Administration Sodium Chloride 10 ml 05/03/20 17:39 Saline Flush FLUSH ASDIRECTED PRN Keep Vein Open Sodium Chloride 2.5 ml 05/03/20 17:39 Saline Flush FLUSH ASDIRECTED PRN Keep Vein Open Departure - Departure Time of Disposition: 20:51 Disposition: Home, Self-Care 01 Condition: Good Clinical Impression: Pyelonephritis - Discharge Information Instructions: Pyelonephritis, Adult, [id number] Referrals: Chante Oscar MD [Primary Care Provider] - Forms: ED Department Discharge Additional Instructions: Follow-up with primary care doctor. Take all medications as prescribed. Return to the ED with any new or worsening symptoms. The following information is given to patients seen in the emergency department who are being discharged to home. This information is to outline your options for follow-up care. We provide all patients seen in our emergency department with a follow-up referral. The need for follow-up, as well as the timing and circumstances, are variable depending upon the specifics of your emergency department visit. If you don't have a primary care physician on staff, we will provide you with a referral. We always advise you to contact your personal physician following an emergency department visit to inform them of the circumstance of the visit and for follow-up with them and/or the need for any referrals to a consulting specialist. The emergency department will also refer you to a specialist when appropriate. This referral assures that you have the opportunity for follow-up care with a specialist. All of these measure are taken in an effort to provide you with optimal care, which includes your follow-up. Under all circumstances we always encourage you to contact your private physician who remains a resource for coordinating your care. When calling for follow-up care, please make the office aware that this follow-up is from your recent emergency room visit. If for any reason you are refused follow-up, please contact the [facility] Emergency Department at and asked to speak to the emergency department charge nurse. Sepsis Event Note (ED) - Focused Exam Vital Signs: Vital Signs Temp Pulse Resp BP Pulse Ox 05/03/20 21:05 97.8 F 68 18 96/52 L 97 05/03/20 20:34 97.8 F 64 18 106/50 L 98 - My Orders Last 24 Hours: My Active Orders 05/03/20 16:57 CULTURE BLOOD [BC] Stat 05/03/20 17:39 Saline Lock Insert [OM.PC] Stat 05/03/20 17:52 Blood Culture x2 Reflex Set [OM.PC] Stat 05/03/20 18:13 CULTURE BLOOD [BC] Stat - Assessment/Plan Last 24 Hours: My Active Orders 05/03/20 16:57 CULTURE BLOOD [BC] Stat 05/03/20 17:39 Saline Lock Insert [OM.PC] Stat 05/03/20 17:52 Blood Culture x2 Reflex Set [OM.PC] Stat 05/03/20 18:13 CULTURE BLOOD [BC] Stat <Margarita Romero - Last Filed: 05/04/20 07:12> ED HPI GENERAL MEDICAL PROBLEM - General Source of Information: Reports: Patient History Limitations: Reports: No Limitations - History of Present Illness INITIAL COMMENTS - FREE TEXT/NARRATIVE: History of present illness: 29-year-old female with ongoing dysuria, flank pain and abdominal pain as well as fevers. Was actually seen here in the emergency department earlier this morning after having a temp of 103 at home, and had labs and UA, received Rocephin, and was discharged. She reports that she has continued to have symptoms all day and has not yet been able to start the antibiotics that were prescribed and sent electronically to her pharmacy. She reports she had a UTI 2 weeks ago and completed only 8 out of the 10 days of antibiotics because she was afraid that it would flareup her IBS, and she started taking a supplement thinking that would help cure the UTI. She does report that she has frequent UTIs. LMP3.5 weeks ago. Review of systems: As per history of present illness and below otherwise all systems reviewed and negative. Past medical history: As per history of present illness and as reviewed below otherwise noncontributory. IBS, Surgical history: As per history of present illness and as reviewed below otherwise noncontributory. Social history: No reported history of drug or alcohol abuse. Family history: As per history of present illness and as reviewed below otherwise noncontributory. Physical exam: HEENT: Atraumatic, normocephalic, EOMI, mucous membranes moist, throat clear, neck supple, nontender, trachea midline. Lungs: no respiratory distress. Heart: regular rate and rhythm Abdomen: Soft, nondistended, mildly tender, nonfocal. Negative for masses or hepatosplenomegaly. Mild flank tenderness. Pelvis: Stable nontender. Genitourinary: Deferred. Rectal: Deferred. Extremities: Atraumatic, Neuro: Awake, alert, oriented. Diagnostics: [] Therapeutics: MDM: Well-appearing, vital stable here, will recheck labs and UA. Already received Rocephin earlier this morning. Pain control and IV fluids. WBC not elevated, UA consistent with UTI. Chemistry pending due to lab machine malfunction. Patient signed out pending symptom/pain control and chemistry results. Impression: [] Plan: [] Definitive disposition and diagnosis as appropriate pending reevaluation and review of above. back Pain Score (Numeric/FACES): 5 headache Pain Score (Numeric/FACES): 8 Past Medical History HEENT History: Reports: None Cardiovascular History: Reports: None Respiratory History: Reports: None Gastrointestinal History: Reports: Other (See Below) Other Gastrointestinal History: Ulcerative Colitis as a young kid Genitourinary History: Reports: None [employer] History: Reports: Musculoskeletal History: Reports: None Neurological History: Reports: None Psychiatric History: Reports: Addiction, Other (See Below) Other Psychiatric History: History of addiction- currently taking subutex Endocrine/Metabolic History: Reports: None Hematologic History: Reports: None Immunologic History: Reports: None Oncologic (Cancer) History: Reports: None Dermatologic History: Reports: None - Infectious Disease History Infectious Disease History: Reports: None - Past Surgical History Head Surgeries/Procedures: Reports: None HEENT Surgical History: Reports: None Cardiovascular Surgical History: Reports: None Respiratory Surgical History: Reports: None Endocrine Surgical History: Reports: None Neurological Surgical History: Reports: None Musculoskeletal Surgical History: Reports: None Dermatological Surgical History: Reports: None Social & Family History - Family History Family Medical History: Noncontributory - Tobacco Use Smoking Status *Q: Never Smoker Second Hand Smoke Exposure: No - Caffeine Use Caffeine Use: Reports: Coffee - Recreational Drug Use Recreational Drug Use: Yes ED ROS GENERAL - Review of Systems Review Of Systems: See Below (See dictation) ED EXAM, GI/ABD - Physical Exam Exam: See Below (See dictation) Course - Orders/Labs/Meds Labs: Laboratory Tests 05/03/20 05/03/20 05/03/20 Range/Units 18:05 18:05 18:10 WBC 9.69 (4.0-11.0) K/uL RBC 3.55 L (4.30-5.90) M/uL Hgb 11.0 L (12.0-16.0) g/dL Hct 33.0 L (36.0-46.0) % MCV 93.0 (80.0-98.0) fL MCH 31.0 (27.0-32.0) pg MCHC 33.3 (31.0-37.0) g/dL RDW Std Deviation 42.0 (28.0-62.0) fl RDW Coeff of Miesha 12 (11.0-15.0) % Plt Count 158 (150-400) K/uL MPV 11.00 (7.40-12.00) fL Neut % (Auto) 86.0 H (48.0-80.0) % Lymph % (Auto) 6.2 L (16.0-40.0) % [place] % (Auto) 7.6 (0.0-15.0) % Eos % (Auto) 0.1 (0.0-7.0) % Baso % (Auto) 0.1 (0.0-1.5) % Neut # (Auto) 8.3 H (1.4-5.7) K/uL Lymph # (Auto) 0.6 (0.6-2.4) K/uL [place] # (Auto) 0.7 (0.0-0.8) K/uL Eos # (Auto) 0.0 (0.0-0.7) K/uL Baso # (Auto) 0.0 (0.0-0.1) K/uL Nucleated RBC % 0.0 /100WBC Nucleated RBCs # 0 K/uL Sodium (136-145) mmol/L Potassium (3.5-5.1) mmol/L Chloride (98-107) mmol/L Carbon Dioxide (21.0-32.0) mmol/L BUN (7.0-18.0) mg/dL Creatinine (0.6-1.0) mg/dL Est Cr Clr Drug Dosing Estimated GFR (MDRD) ml/min Glucose (74-106) mg/dL Calcium (8.5-10.1) mg/dL Total Bilirubin (0.2-1.0) mg/dL AST (15-37) IU/L ALT (14-63) IU/L Alkaline Phosphatase (46-116) U/L Total Protein (6.4-8.2) g/dL Albumin (3.4-5.0) g/dL Globulin (2.6-4.0) g/dL Albumin/Globulin Ratio (0.9-1.6) Urine Color ORANGE Urine Appearance SLT CLOUDY Urine pH 5.0 (5.0-8.0) Ur Specific [place] 1.025 (1.001-1.035) Urine Protein 100 H (NEGATIVE) mg/dL Urine Glucose (UA) 100 H (NEGATIVE) mg/dL Urine Ketones TRACE H (NEGATIVE) mg/dL Urine Occult Blood TRACE-INTACT H (NEGATIVE) Urine Nitrite POSITIVE H (NEGATIVE) Urine Bilirubin SMALL H (NEGATIVE) Urine Ictotest POSITIVE Urine Urobilinogen 4.0 H (<2.0) EU/dL Ur Leukocyte Esterase SMALL H (NEGATIVE) Urine RBC 1-3 (0-2/HPF) Urine WBC 10-15 (0-5/HPF) Ur Epithelial Cells FEW (NONE-FEW) Urine Bacteria 2+ H (NEGATIVE) Urine Mucus LIGHT (NONE-MOD) Urinalysis Comment Urine HCG, Qual NEGATIVE (NEGATIVE) 05/03/20 Range/Units 18:10 WBC (4.0-11.0) K/uL RBC (4.30-5.90) M/uL Hgb (12.0-16.0) g/dL Hct (36.0-46.0) % MCV (80.0-98.0) fL MCH (27.0-32.0) pg MCHC (31.0-37.0) g/dL RDW Std Deviation (28.0-62.0) fl RDW Coeff of Miesha (11.0-15.0) % Plt Count (150-400) K/uL MPV (7.40-12.00) fL Neut % (Auto) (48.0-80.0) % Lymph % (Auto) (16.0-40.0) % [place] % (Auto) (0.0-15.0) % Eos % (Auto) (0.0-7.0) % Baso % (Auto) (0.0-1.5) % Neut # (Auto) (1.4-5.7) K/uL Lymph # (Auto) (0.6-2.4) K/uL [place] # (Auto) (0.0-0.8) K/uL Eos # (Auto) (0.0-0.7) K/uL Baso # (Auto) (0.0-0.1) K/uL Nucleated RBC % /100WBC Nucleated RBCs # K/uL Sodium 136 (136-145) mmol/L Potassium 3.0 L (3.5-5.1) mmol/L Chloride 102 (98-107) mmol/L Carbon Dioxide 25.9 (21.0-32.0) mmol/L BUN 13 (7.0-18.0) mg/dL Creatinine 0.8 (0.6-1.0) mg/dL Est Cr Clr Drug Dosing TNP Estimated GFR (MDRD) > 60.0 ml/min Glucose 122 H (74-106) mg/dL Calcium 8.4 L (8.5-10.1) mg/dL Total Bilirubin 0.5 (0.2-1.0) mg/dL AST 15 (15-37) IU/L ALT 13 L (14-63) IU/L Alkaline Phosphatase 52 (46-116) U/L Total Protein 6.3 L (6.4-8.2) g/dL Albumin 3.5 (3.4-5.0) g/dL Globulin 2.8 (2.6-4.0) g/dL Albumin/Globulin Ratio 1.2 (0.9-1.6) Urine Color Urine Appearance Urine pH (5.0-8.0) Ur Specific [place] (1.001-1.035) Urine Protein (NEGATIVE) mg/dL Urine Glucose (UA) (NEGATIVE) mg/dL Urine Ketones (NEGATIVE) mg/dL Urine Occult Blood (NEGATIVE) Urine Nitrite (NEGATIVE) Urine Bilirubin (NEGATIVE) Urine Ictotest Urine Urobilinogen (<2.0) EU/dL Ur Leukocyte Esterase (NEGATIVE) Urine RBC (0-2/HPF) Urine WBC (0-5/HPF) Ur Epithelial Cells (NONE-FEW) Urine Bacteria (NEGATIVE) Urine Mucus (NONE-MOD) Urinalysis Comment Urine HCG, Qual (NEGATIVE) - Re-Assessments/Exams Free Text/Narrative Re-Assessment/Exam: 05/03/20 19:09 She is feeling slightly better. She does report that she still has a headache. Discussed all labs available with the patient at this time. Will give second dose of Toradol and 1 g of Tylenol. Discussed plan for discharge if the patient is feeling symptomatic improvement at that time. She agrees with this plan. Sepsis Event Note (ED) - Evaluation Sepsis Screening Result: No Definite Risk
[2020-05-03 18:38] LABS: BLOOD UREA NITROGEN,BUN 13 mg/dL (7.0-18.0); CARBON DIOXIDE,CO2 25.9 mmol/L (21.0-32.0); GLUCOSE RANDOM 122 mg/dL (74-106)
[2020-05-03] MEDS ORDERED: Acetaminophen 500 MG Tab PO ONE (19:05)
[2020-05-03] MEDS ORDERED: Ketorolac 30 MG/ML SDV IVPUSH ONE (19:07)
[2020-05-03 19:15] LABS: CHLORIDE,CL 102 mmol/L (98-107); SODIUM,NA 136 mmol/L (136-145)
[2020-05-03 21:14] VITALS: BP 96/52; PULSE 68
== END 2020-05-03 21:05 | disposition home or self-care (01) ==
LOC: MW.ED 17:04
DX: N12 Tubulo-interstitial nephritis, not specified as acute or chronic (principal); Z79.899 Other long term (current) drug therapy
CPT/HCPCS: 80053; 81001; 81025; 85025; 87040; 96374; 96376; 99284; A9270; J1885; J7030

== ENCOUNTER 2020-11-22 08:23 | Emergency (ER) | payer BC ==
--- NOTE | 2020-11-22 08:57 | EDM.PDOC ---
ED HPI GENERAL MEDICAL PROBLEM - General Chief Complaint: Genitourinary Problem Stated Complaint: ABDOMINAL PAIN Time Seen by Provider: 11/22/20 08:26 - History of Present Illness INITIAL COMMENTS - FREE TEXT/NARRATIVE: 30-year-old female with a history of IBS who is 12 to 14 weeks is presenting with dysuria and bilateral flank pain. Patient reports that she took her last dose of a 7-day course of Macrobid yesterday. She has trouble with frequent UTIs. She reports that her dysuria and bladder pain and flank pain returned this morning. She also reports trouble with an IBS flare. No vaginal bleeding or discharge no chest pain no cough or shortness of breath she reports profound worsening of her anxiety as well. bladder Pain Score (Numeric/FACES): 5 - Related Data Allergies Allergy/AdvReac Type Severity Reaction Status Date / Time Penicillins Allergy Hives Verified 11/22/20 08:43 Home Meds: Home Meds Escitalopram [Lexapro] 20 mg PO DAILY 08/01/15 [History] Dicyclomine [Bentyl] 20 mg PO QIDACANDBED 02/01/19 [History] Buprenorphine [Subutex] 8 mg PO DAILY 11/22/20 [History] cephALEXin [Keflex] 500 mg PO BID 5 Days #10 cap 11/22/20 [Rx] Past Medical History - Past Health History Medical/Surgical History: Denies Medical/Surgical History HEENT History: Reports: None Cardiovascular History: Reports: None Respiratory History: Reports: None Gastrointestinal History: Reports: Other (See Below) Other Gastrointestinal History: Ulcerative Colitis as a young kid Genitourinary History: Reports: None 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: Musculoskeletal History: Reports: None Neurological History: Reports: None Psychiatric History: Reports: Addiction, Anxiety, Other (See Below) Other Psychiatric History: History of addiction- currently taking subutex Endocrine/Metabolic History: Reports: None Hematologic History: Reports: None Immunologic History: Reports: None Oncologic (Cancer) History: Reports: None Dermatologic History: Reports: None - Infectious Disease History Infectious Disease History: Reports: Chicken Pox - Past Surgical History Head Surgeries/Procedures: Reports: None HEENT Surgical History: Reports: None Cardiovascular Surgical History: Reports: None Respiratory Surgical History: Reports: None GI Surgical History: Reports: None Other GI Surgeries/Procedures: IBS Endocrine Surgical History: Reports: None Neurological Surgical History: Reports: None Musculoskeletal Surgical History: Reports: None Dermatological Surgical History: Reports: None Social & Family History - Family History Family Medical History: No Pertinent Family History - Caffeine Use Caffeine Use: Reports: Coffee - Recreational Drug Use Recreational Drug Use: No ED ROS GENERAL - Review of Systems Review Of Systems: See Below Free Text/Narrative/Comment: General: No fever. Skin: No rash. Eyes: No vision problems. ENT: No sore throat. Neck: No neck stiffness. Respiratory: No shortness of breath. Cardiac: No chest pain. Gastrointestinal: Per HPI Urinary: Per HPI Musculoskeletal: No myalgias/arthralgias. Neurologic: No headache. ED EXAM, GENERAL - Physical Exam Exam: See Below Free Text/Narrative:: General Appearance: No acute distress, appears comfortable Skin: No rash HEENT: Normocephalic/atraumatic, sclera anicteric, mucous membranes moist Neck: Normal range of motion Chest and Lungs: Bilateral breath sounds, clear to auscultation Cardiovascular: Regular rate and rhythm, no murmur Abdomen: Soft, non-tender Back: Normal Musculoskeletal: No edema or tenderness Neurologic: Awake, alert, no obvious deficits, moving all extremities Psychiatric: Appears anxious but calm and cooperative Course - Vital Signs Last Recorded V/S: Last Vital Signs Temp 97.8 F 11/22/20 08:45 Pulse 89 11/22/20 09:50 Resp 16 11/22/20 09:50 BP 114/69 11/22/20 09:50 Pulse Ox 96 11/22/20 09:50 - Orders/Labs/Meds Orders: Active Orders 24 hr Category Date Time Status OB 1st Tri Sgl 1st Gest [US] Stat Exams 11/22/20 09:42 Taken Labs: Laboratory Tests 11/22/20 11/22/20 11/22/20 Range/Units 08:40 09:11 09:11 WBC 10.22 (4.0-11.0) K/uL RBC 4.06 L (4.30-5.90) M/uL Hgb 12.4 (12.0-16.0) g/dL Hct 37.2 (36.0-46.0) % MCV 91.6 (80.0-98.0) fL MCH 30.5 (27.0-32.0) pg MCHC 33.3 (31.0-37.0) g/dL RDW Std Deviation 41.9 (28.0-62.0) fl RDW Coeff of Miesha 13 (11.0-15.0) % Plt Count 235 (150-400) K/uL MPV 10.00 (7.40-12.00) fL Neut % (Auto) 76.4 (48.0-80.0) % Lymph % (Auto) 17.5 (16.0-40.0) % Garrett % (Auto) 5.4 (0.0-15.0) % Eos % (Auto) 0.5 (0.0-7.0) % Baso % (Auto) 0.2 (0.0-1.5) % Neut # (Auto) 7.8 H (1.4-5.7) K/uL Lymph # (Auto) 1.8 (0.6-2.4) K/uL Garrett # (Auto) 0.6 (0.0-0.8) K/uL Eos # (Auto) 0.1 (0.0-0.7) K/uL Baso # (Auto) 0.0 (0.0-0.1) K/uL Nucleated RBC % 0.0 /100WBC Nucleated RBCs # 0 K/uL Sodium 133 L (136-145) mmol/L Potassium 3.2 L (3.5-5.1) mmol/L Chloride 101 (98-107) mmol/L Carbon Dioxide 26.3 (21.0-32.0) mmol/L BUN 7 (7.0-18.0) mg/dL Creatinine 0.6 (0.6-1.0) mg/dL Est Cr Clr Drug Dosing 111.87 mL/min Estimated GFR (MDRD) > 60.0 ml/min Glucose 140 H (74-106) mg/dL Calcium 9.0 (8.5-10.1) mg/dL Total Bilirubin 0.2 (0.2-1.0) mg/dL AST 12 L (15-37) IU/L ALT 19 (14-63) IU/L Alkaline Phosphatase 47 (46-116) U/L Total Protein 7.0 (6.4-8.2) g/dL Albumin 3.3 L (3.4-5.0) g/dL Globulin 3.7 (2.6-4.0) g/dL Albumin/Globulin Ratio 0.9 (0.9-1.6) Urine Color DARK YELLOW Urine Appearance SLT CLOUDY Urine pH 5.0 (5.0-8.0) Ur Specific Savage >= 1.030 (1.001-1.035) Urine Protein 100 H (NEGATIVE) mg/dL Urine Glucose (UA) NEGATIVE (NEGATIVE) mg/dL Urine Ketones 15 H (NEGATIVE) mg/dL Urine Occult Blood LARGE H (NEGATIVE) Urine Nitrite NEGATIVE (NEGATIVE) Urine Bilirubin SMALL H (NEGATIVE) Urine Ictotest NEGATIVE Urine Urobilinogen 0.2 (<2.0) EU/dL Ur Leukocyte Esterase TRACE H (NEGATIVE) Urine RBC 40-50 (0-2/HPF) Urine WBC 3-5 (0-5/HPF) Ur Epithelial Cells OCCASIONAL (NONE-FEW) Calcium Oxalate Crystal MODERATE (NEGATIVE) Amorphous Sediment LIGHT (NEGATIVE) Urine Bacteria 1+ H (NEGATIVE) Urinalysis Comment Meds: Medications Discontinued Medications Generic Name Dose Route Start Last Admin Trade Name Jeanine PRN Reason Stop Dose Admin Olanzapine 5 mg 11/22/20 08:54 11/22/20 09:02 Zyprexa PO 11/22/20 08:55 5 mg ONETIME ONE Administration Departure - Departure Time of Disposition: 11:01 Disposition: Home, Self-Care 01 Condition: Good Clinical Impression: Abdominal pain, Hypokalemia - Discharge Information *PRESCRIPTION DRUG MONITORING PROGRAM REVIEWED*: Not Applicable *COPY OF PRESCRIPTION DRUG MONITORING REPORT IN PATIENT TOSHIA: Not Applicable Prescriptions: cephALEXin [Keflex] 500 mg PO BID 5 Days #10 cap Instructions: Abdominal Pain During , Potassium Content of Foods Referrals: Chante Oscar MD [Primary Care Provider] - Forms: ED Department Discharge Additional Instructions: Your abdominal pain today was likely a combination of your your irritable bowel syndrome and an ongoing partially treated urinary tract infection. Please complete the 5-day course of Keflex. Please be sure to keep your appointment with your OB next week. Your potassium was mildly low today at 3.2. You do not require IV potassium supplementation for this. Oral potassium supplements can sometimes upset the stomach and so I would encourage you to eat high potassium foods is important you stay hydrated and eat a balanced diet while you are . If your symptoms worsen or you have any other new symptoms that concern you please contact your OB or return to the ER. The following information is given to patients seen in the emergency department who are being discharged to home. This information is to outline your options for follow-up care. We provide all patients seen in our emergency department with a follow-up referral. The need for follow-up, as well as the timing and circumstances, are variable depending upon the specifics of your emergency department visit. If you don't have a primary care physician on staff, we will provide you with a referral. We always advise you to contact your personal physician following an emergency department visit to inform them of the circumstance of the visit and for follow-up with them and/or the need for any referrals to a consulting specialist. The emergency department will also refer you to a specialist when appropriate. This referral assures that you have the opportunity for follow-up care with a specialist. All of these measure are taken in an effort to provide you with optimal care, which includes your follow-up. Under all circumstances we always encourage you to contact your private physician who remains a resource for coordinating your care. When calling for follow-up care, please make the office aware that this follow-up is from your recent emergency room visit. If for any reason you are refused follow-up, please contact the [facility] Emergency Department at and asked to speak to the emergency department charge nurse. Sepsis Event Note (ED) - Evaluation Sepsis Screening Result: Possible Sepsis Risk - Focused Exam Vital Signs: Vital Signs Temp Pulse Resp BP Pulse Ox 11/22/20 09:50 89 16 114/69 96 11/22/20 08:45 97.8 F 130 H 22 H 112/76 97 - My Orders Last 24 Hours: My Active Orders 11/22/20 09:42 OB 1st Tri Sgl 1st Gest [US] Stat - Assessment/Plan Last 24 Hours: My Active Orders 11/22/20 09:42 OB 1st Tri Sgl 1st Gest [US] Stat Assessment:: 30-year-old female known to be presenting with signs and symptoms concerning for recurrent UTI versus Armando nephritis labs and urinalysis been ordered. Patient strongly desires something for anxiety. We discussed that benzodiazepines are uniformly category D, or X. We discussed that antipsychotics such as Haldol Zyprexa are category C and therefore the risk cannot be known or excluded. Patient understands this but strongly desires something for her anxiety we will proceed with p.o. Zyprexa. The patient is without vaginal bleeding that would suggest miscarriage. 0944: Patient appears to have responded well to the Zyprexa from an anxiety standpoint. She states that she has not had an ultrasound this she denies any vaginal bleeding or vaginal discharge. She reports that this pain is unusually severe she describes a cramping lower abdominal pain that radiates to the bilateral inferior Carcamo she denies any laterality to the pain. Ultrasound has been ordered to evaluate for ectopic though at this estimated gestational age I think this is less likely ovarian torsion felt unlikely given the lack of laterality to the symptoms but this would also be assessed on the ultrasound. Miscarriage is also a consideration and ultrasound will evaluate for this as well. 1100: Patient's ultrasound shows a single live IUP at approximately 16 weeks. This is consistent with the patient is now reported LMP of August 03 which would put her at 15 weeks 6 days. Patient symptoms are much improved and she feels comfortable at this time. Patient's labs show bacteria and signs of partially treated UTI given this will be 5 days of Keflex. Recommend continue the probiotic. Patient has a minimal hypokalemia as well. This does not require repletion. Very small ketones in the urine as well. This was discussed with the patient and understood patient has follow-up scheduled with her OB for November 27 or .
[2020-11-22] MEDS: OLANZapine 5 MG Tab PO ONE (09:02)
[2020-11-22 09:46] LABS: BLOOD UREA NITROGEN,BUN 7 mg/dL (7.0-18.0); CARBON DIOXIDE,CO2 26.3 mmol/L (21.0-32.0); CHLORIDE,CL 101 mmol/L (98-107); GLUCOSE RANDOM 140 mg/dL (74-106); POTASSIUM,K 3.2 mmol/L (3.5-5.1); SODIUM,NA 133 mmol/L (136-145)
[2020-11-22 11:16] VITALS: BP 96/53; PULSE 82
--- NOTE | 2020-11-22 11:25 | US ---
Indication: Pain. First trimester Technique: Sonography of the gravid uterus was performed. Comparison: There are no prior studies for comparison Findings: There is a single live intrauterine gestation that is vertex during most of the examination. The placenta is posterior fundal maternal left and there is no previa. The ovaries are not identified. A focal prominent area of myometrium is identified behind the placenta. The differential considerations are a myoma versus a Jose Friedman contraction. I favor contraction though this area should be re-evaluated at follow-up sonography. The cervical length is 4.6 centimeters which is normal. The LMP is given as 08/03/2020 yielding a gestational age of 15 weeks and 6 days and an estimated date of delivery of 05/10/2021. The ultrasound estimated age is currently 16 weeks and 5 days corresponding to an estimated date of delivery of 05/04/2021. Biometry: Biparietal diameter 3.7 centimeters corresponding to 17 weeks and 2 days Head circumference 13.82 centimeters corresponding to 17 weeks and 1 day Abdominal circumference 10.76 centimeters corresponding to 16 weeks and 5 days Femur length 1.99 centimeters corresponding to 16 weeks and 0 days Estimated weight is 165 +/-23 grams which is at the 79th percentile based upon the age predicted by the LMP Fluid volumes are subjectively normal Please be aware that formal anatomy was not performed on this study and anatomy was only study to evaluate biometry. heart rate is 148 beats per minute which is normal. Impression: 1. There is a single live intrauterine gestation that is vertex. No previa. Normal fluid volumes. 2. The current ultrasound age is concordant with the age predicted by the LMP as outlined above. 3. Cervical length is normal. 4. Focal prominent area of myometrium favor Jose Friedman contraction over myoma the re-evaluation of this area on follow-up is advised. 5. Formal anatomy was not survey. Anatomy was only studied for biometry Dictated by Seb Chowdary MD @ Nov 22 2020 11:18AM Signed by Dr. Seb Chowdary @ Nov 22 2020 11:24AM
== END 2020-11-22 11:16 | disposition home or self-care (01) ==
LOC: MW.ED 08:23
DX: O99.891 Other specified diseases and conditions complicating pregnancy (principal); R10.9 Unspecified abdominal pain; O99.282 Endocrine, nutritional and metabolic diseases complicating pregnancy, second trimester; E87.6 Hypokalemia; O99.342 Other mental disorders complicating pregnancy, second trimester; F41.9 Anxiety disorder, unspecified; Z3A.15 15 weeks gestation of pregnancy; Z79.899 Other long term (current) drug therapy
CPT/HCPCS: 36415; 76801; 76801-26; 80053; 81001; 85025; 99284; 99284-25; A9270-GY

== ENCOUNTER 2020-12-26 21:35 | Emergency (ER) | payer BC ==
--- NOTE | 2020-12-26 21:55 | EDM.PDOC ---
ED HPI GENERAL MEDICAL PROBLEM - General Chief Complaint: Genitourinary Problem Stated Complaint: BLADDER PROBLEM Time Seen by Provider: 12/26/20 21:40 Source of Information: Reports: Patient History Limitations: Reports: No Limitations - History of Present Illness INITIAL COMMENTS - FREE TEXT/NARRATIVE: 30-year-old female who is 20 weeks presents today for increased u rination and bladder spasms. Patient that she was seen by her COMPONENT TECHNICIAN doctor yesterday ultrasound and examination but today's been having frequent urination. Patient states she gets recurrent UTIs has been going more than normal. Patient denies any abdominal pain vaginal bleeding discharge nausea vomiting or other complaints. - Related Data Allergies Allergy/AdvReac Type Severity Reaction Status Date / Time Penicillins Allergy Hives Verified 11/22/20 08:43 Home Meds: Home Meds Escitalopram [Lexapro] 20 mg PO DAILY 08/01/15 [History] Dicyclomine [Bentyl] 20 mg PO QIDACANDBED 02/01/19 [History] Buprenorphine [Subutex] 8 mg PO DAILY 11/22/20 [History] cephALEXin [Keflex] 500 mg PO BID 5 Days #10 cap 11/22/20 [Rx] Nitrofurantoin Monohyd/M-Cryst [Macrobid 100 mg Capsule] 100 mg PO BID 10 Days #10 capsule 12/26/20 [Rx] Past Medical History - Past Health History Medical/Surgical History: Denies Medical/Surgical History HEENT History: Reports: None Cardiovascular History: Reports: None Respiratory History: Reports: None Gastrointestinal History: Reports: Other (See Below) Other Gastrointestinal History: Ulcerative Colitis as a young kid Genitourinary History: Reports: None 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: Musculoskeletal History: Reports: None Neurological History: Reports: None Psychiatric History: Reports: Addiction, Anxiety, Other (See Below) Other Psychiatric History: History of addiction- currently taking subutex Endocrine/Metabolic History: Reports: None Hematologic History: Reports: None Immunologic History: Reports: None Oncologic (Cancer) History: Reports: None Dermatologic History: Reports: None - Infectious Disease History Infectious Disease History: Reports: Chicken Pox - Past Surgical History Head Surgeries/Procedures: Reports: None HEENT Surgical History: Reports: None Cardiovascular Surgical History: Reports: None Respiratory Surgical History: Reports: None GI Surgical History: Reports: None Other GI Surgeries/Procedures: IBS Endocrine Surgical History: Reports: None Neurological Surgical History: Reports: None Musculoskeletal Surgical History: Reports: None Dermatological Surgical History: Reports: None Social & Family History - Family History Family Medical History: No Pertinent Family History - Caffeine Use Caffeine Use: Reports: Coffee ED ROS GENERAL - Review of Systems Review Of Systems: Comprehensive ROS is negative, except as noted in HPI. ED EXAM, RENAL/ - Physical Exam Exam: See Below Exam Limited By: No Limitations General Appearance: Alert, WD/WN Respiratory/Chest: No Respiratory Distress, Lungs Clear Cardiovascular: Normal Peripheral Pulses, Regular Rate, Rhythm GI/Abdominal: Normal Bowel Sounds, Soft, Non-Tender Neurological: Alert, Oriented, Normal Cognition Course - Orders/Labs/Meds Orders: Active Orders 24 hr Category Date Time Status CULTURE URINE [RM] Stat Lab 12/26/20 21:43 Received Nitrofurantoin [place]/Macrocryst [Macrobid] Med 12/26/20 22:12 Once 100 mg PO ONETIME ONE Medication Orders Nitrofurantoin Macrocrystals (Macrobid) 100 mg PO ONETIME ONE Stop: 12/26/20 22:13 Labs: Laboratory Tests 12/26/20 Range/Units 21:43 Urine Color ORANGE Urine Appearance SLT CLOUDY Urine pH 5.0 (5.0-8.0) Ur Specific Roberta 1.025 (1.001-1.035) Urine Protein >=300 H (NEGATIVE) mg/dL Urine Glucose (UA) 100 H (NEGATIVE) mg/dL Urine Ketones 15 H (NEGATIVE) mg/dL Urine Occult Blood TRACE-LYSED H (NEGATIVE) Urine Nitrite POSITIVE H (NEGATIVE) Urine Bilirubin NEGATIVE (NEGATIVE) Urine Urobilinogen >=8.0 H (<2.0) EU/dL Ur Leukocyte Esterase MODERATE H (NEGATIVE) Urine RBC 1-3 (0-2/HPF) Urine WBC TO NUMEROUS TO COUNT H (0-5/HPF) Ur Epithelial Cells MODERATE (NONE-FEW) Urine Bacteria 1+ H (NEGATIVE) Urine Mucus MODERATE (NONE-MOD) Urinalysis Comment Meds: Medications Generic Name Dose Route Start Last Admin Trade Name Freq PRN Reason Stop Dose Admin Nitrofurantoin Macrocrystals 100 mg 12/26/20 22:12 Macrobid PO 12/26/20 22:13 ONETIME ONE - Re-Assessments/Exams Free Text/Narrative Re-Assessment/Exam: 12/26/20 22:12 Previous culture so she is sensitive to Macrobid will prescribe Macrobid and discharge patient home to follow-up with primary care physician. Departure - Departure Time of Disposition: 22:13 Disposition: Home, Self-Care 01 Condition: Good Clinical Impression: UTI in - Discharge Information *PRESCRIPTION DRUG MONITORING PROGRAM REVIEWED*: Not Applicable *COPY OF PRESCRIPTION DRUG MONITORING REPORT IN PATIENT TOSHIA: Not Applicable Instructions: and Urinary Tract Infection Referrals: Chante Oscar MD [Primary Care Provider] - Forms: ED Department Discharge Additional Instructions: The following information is given to patients seen in the emergency department who are being discharged to home. This information is to outline your options for follow-up care. We provide all patients seen in our emergency department with a follow-up referral. The need for follow-up, as well as the timing and circumstances, are variable depending upon the specifics of your emergency department visit. If you don't have a primary care physician on staff, we will provide you with a referral. We always advise you to contact your personal physician following an emergency department visit to inform them of the circumstance of the visit and for follow-up with them and/or the need for any referrals to a consulting specialist. The emergency department will also refer you to a specialist when appropriate. This referral assures that you have the opportunity for follow-up care with a specialist. All of these measure are taken in an effort to provide you with optimal care, which includes your follow-up. Under all circumstances we always encourage you to contact your private physician who remains a resource for coordinating your care. When calling for follow-up care, please make the office aware that this follow-up is from your recent emergency room visit. If for any reason you are refused follow-up, please contact the [facility] Emergency Department at and asked to speak to the emergency department charge nurse. Please follow up with your primary care physician. If you do not have a primary care physician, see below: [facility] [address] [place] [id number] [facility] [address] [place] [id number] Follow-up with COMPONENT TECHNICIAN as needed. We will send home antibiotics if you develop any worsening urinary symptoms or abdominal pain please return to the ED. - My Orders Last 24 Hours: My Active Orders 12/26/20 22:12 Nitrofurantoin [place]/Macrocryst [Macrobid] 100 mg PO ONETIME ONE - Assessment/Plan Last 24 Hours: My Active Orders 12/26/20 22:12 Nitrofurantoin [place]/Macrocryst [Macrobid] 100 mg PO ONETIME ONE Assessment:: Patient is a 30-year-old female who presents today for increased urination. Patient was seen by COMPONENT TECHNICIAN yesterday and had ultrasound and labs done for . Will send UA and reassess.
[2020-12-26] MEDS ORDERED: Nitrofurantoin Monohydrate/Macrocrystalline 100 MG Cap PO ONE (22:12)
[2020-12-27 01:26] VITALS: BP 120/82; PULSE 70
== END 2020-12-26 22:29 | disposition home or self-care (01) ==
LOC: MW.ED 21:35
DX: O23.42 Unspecified infection of urinary tract in pregnancy, second trimester (principal); Z88.0 Allergy status to penicillin; Z3A.20 20 weeks gestation of pregnancy
CPT/HCPCS: 81001; 87086; 87088; 87186; 99283; A9270; 99282

== ENCOUNTER 2020-12-31 14:00 | Emergency (ER) | payer BC ==
--- NOTE | 2020-12-31 14:15 | EDM.PDOC ---
ED HPI GENERAL MEDICAL PROBLEM - General Chief Complaint: Genitourinary Problem Stated Complaint: possible UTI Time Seen by Provider: 12/31/20 14:03 Source of Information: Reports: Patient History Limitations: Reports: No Limitations - History of Present Illness INITIAL COMMENTS - FREE TEXT/NARRATIVE: HISTORY AND PHYSICAL: History of present illness: Patient denies fever, chills, chest pain, shortness of breath, or cough. Denies headache, neck stiff ness, change in vision, syncope, or near syncope. Denies nausea, vomiting, abdominal pain, diarrhea, constipation, or dysuria. Has not noted any blood in urine or stool. Patient has been eating and drinking appropriately. Review of systems: As per history of present illness and below otherwise all systems reviewed and negative. Past medical history: As per history of present illness and as reviewed below otherwise noncontributory. Surgical history: As per history of present illness and as reviewed below otherwise noncontributory. Social history: See social history for further information Family history: As per history of present illness and as reviewed below otherwise noncontributory. Physical exam: General: Patient is alert, oriented, and in no acute distress. Patient sitting comfortably on exam table. HEENT: Atraumatic, normocephalic, pupils equal and reactive bilaterally, negative for conjunctival pallor or scleral icterus, mucous membranes moist, TMs normal bilaterally, throat clear, neck supple, nontender, trachea midline. No drooling or trismus noted. No meningeal signs. No hot potato voice noted. Lungs: Clear to auscultation, breath sounds equal bilaterally, chest nontender. Heart: S1S2, regular rate and rhythm without overt murmur Abdomen: Soft, nondistended, nontender. Negative for masses or hepatosplenomegaly. Negative for costovertebral tenderness. Pelvis: Stable nontender. Genitourinary: Deferred. Rectal: Deferred. Skin: Intact, warm, dry. No lesions or rashes noted. Extremities: Atraumatic, negative for cords or calf pain. Neurovascular unremarkable. Neuro: Awake, alert, oriented. Cranial nerves II through XII unremarkable. Cerebellum unremarkable. Motor and sensory unremarkable throughout. Exam nonfocal. Notes: Voices understanding and is agreeable to plan of care. Denies any further questions or concerns at this time. Diagnostics: Therapeutics: Prescription: Impression: Plan: Definitive disposition and diagnosis as appropriate pending reevaluation and review of above. - Related Data Allergies Allergy/AdvReac Type Severity Reaction Status Date / Time Penicillins Allergy Hives Verified 12/27/20 01:09 Home Meds: Home Meds Dicyclomine [Bentyl] 20 mg PO QIDACANDBED 02/01/19 [History] Nitrofurantoin Monohyd/M-Cryst [Macrobid 100 mg Capsule] 100 mg PO BID 10 Days #10 capsule 12/26/20 [Rx] Buprenorphine HCl/Naloxone HCl [Suboxone 12 mg-3 mg Sl Film] 1 each PO DAILY 12/27/20 [History] Citalopram [Citalopram HBr] 40 mg PO DAILY 12/27/20 [History] Past Medical History - Past Health History Medical/Surgical History: Denies Medical/Surgical History HEENT History: Reports: None Cardiovascular History: Reports: None Respiratory History: Reports: None Gastrointestinal History: Reports: Other (See Below) Other Gastrointestinal History: Ulcerative Colitis as a young kid Genitourinary History: Reports: None 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: Musculoskeletal History: Reports: None Neurological History: Reports: None Psychiatric History: Reports: Addiction, Anxiety, Other (See Below) Other Psychiatric History: History of addiction- currently taking subutex Endocrine/Metabolic History: Reports: None Hematologic History: Reports: None Immunologic History: Reports: None Oncologic (Cancer) History: Reports: None Dermatologic History: Reports: None - Infectious Disease History Infectious Disease History: Reports: Chicken Pox - Past Surgical History Head Surgeries/Procedures: Reports: None HEENT Surgical History: Reports: None Cardiovascular Surgical History: Reports: None Respiratory Surgical History: Reports: None GI Surgical History: Reports: None Other GI Surgeries/Procedures: IBS Endocrine Surgical History: Reports: None Neurological Surgical History: Reports: None Musculoskeletal Surgical History: Reports: None Dermatological Surgical History: Reports: None Social & Family History - Family History Family Medical History: No Pertinent Family History - Caffeine Use Caffeine Use: Reports: None ED ROS GENERAL - Review of Systems Review Of Systems: Comprehensive ROS is negative, except as noted in HPI. ED EXAM, GENERAL - Physical Exam Exam: See Below (see dictation) Course - Orders/Labs/Meds Orders: Active Orders 24 hr Category Date Time Status HCG QUALITATIVE,URINE [URCHEM] Stat Lab 12/31/20 14:03 Ordered UA RFX HUGO AND CULT IF INDIC [URIN] Stat Lab 12/31/20 14:03 Ordered Departure - Discharge Information Referrals: Chante Oscar MD [Primary Care Provider] - - My Orders Last 24 Hours: My Active Orders 12/31/20 14:03 HCG QUALITATIVE,URINE [URCHEM] Stat UA RFX HUGO AND CULT IF INDIC [URIN] Stat - Assessment/Plan Last 24 Hours: My Active Orders 12/31/20 14:03 HCG QUALITATIVE,URINE [URCHEM] Stat UA RFX HUGO AND CULT IF INDIC [URIN] Stat
== END 2020-12-31 14:24 | disposition left against medical advice (07) ==
LOC: MW.ED 14:00
DX: Z53.21 Procedure and treatment not carried out due to patient leaving prior to being seen by health care provider (principal)

== ENCOUNTER 2021-04-23 11:20 | Inpatient (IN) | payer BC ==
[2021-04-23] MEDS: Lactated Ringers 1,000 ML IV SCH ×3 (12:05→13:55)
[2021-04-23] MEDS ORDERED: Water For Irrigation,Sterile 1,000 ML Container IRR PRN (12:13)
[2021-04-23] MEDS ORDERED: Methylergonovine 0.2 MG/1 ML Amp IM PRN (12:13)
[2021-04-23] MEDS ORDERED: Tranexamic Acid 1,000 MG in Sodium Chloride 0.9% 100 ML IV PRN (12:13)
[2021-04-23] MEDS ORDERED: Sodium Chloride 0.9% 10 ML SDV IV PRN (12:13)
[2021-04-23] MEDS ORDERED: Misoprostol 200 MCG Tab PO PRN (12:13)
[2021-04-23] MEDS ORDERED: Carboprost Tromethamine 250 MCG/1 ML Amp IM PRN (12:13)
[2021-04-23] MEDS ORDERED: Nalbuphine 10 MG/1 ML Vial IVPUSH PRN (12:13)
[2021-04-23] MEDS ORDERED: Butorphanol 1 MG/ML SDV IVPUSH PRN (12:13)
[2021-04-23] MEDS ORDERED: Sodium Chloride 0.9% 2.5 ML Syringe FLUSH PRN (12:13)
[2021-04-23] MEDS ORDERED: Sodium Chloride 0.9% 10 ML Syringe FLUSH PRN (12:13)
[2021-04-23] MEDS ORDERED: Lidocaine 1% 50 ML MDV INJECT PRN (12:13)
[2021-04-23] MEDS ORDERED: Oxytocin/0.9 % Sodium Chloride 30 UNIT/500 ML BAG IV SCH ×2 (12:15→12:30)
[2021-04-23] MEDS ORDERED: Misoprostol 25 MCG (1/4 of 100 MCG) Tab VAG PRN (12:17)
[2021-04-23] MEDS ORDERED: Terbutaline 1 MG/ML SDV SUBCUT PRN (12:17)
--- NOTE | 2021-04-23 12:20 | PCM.LDHP ---
L&D History of Present Illness - General Date of Service: 04/23/21 Admit Problem/Dx: Admission Diagnosis/Problem Admission Diagnosis/Problem 04/23/21 12:15 Chely is a 30 yo at 37+4 weeks gestation (LYNDSAY(LMP) 05/10/2021) that presents to L&D today with C/O consistent uterine contractions increasing in intensity since this am. Patient seen in office 04/17/2021, unremarkable course. Reports adequate movement. Denies clemencia vaginal bleeding or LOF at this time. A pos, RI, GBS neg. EFW via [place] 6+ lbs. Pertinent medical history includes: anxiety, opioid addiction treated with long-term Subutex therapy (16 mg/day) Ax: Pencillin Medications: PNV, Subutex 16 mg PO daily, Dicyclomine 20 mg PO daily PRN IBS S/Ss, escitalopram 20 mg PO daily, hydroxyzine 25-50 mg PO q 6 hrs as needed for anxiety. Patient has no other complaints or concerns at this time. 04/23/21 12:20 Source of Information: Patient History Limitations: Reports: No Limitations - History of Present Illness Improves with: Reports: Medication, Movement Worsens with: Reports: Immobilization, Rest Associated Symptoms: Reports: N - Related Data Allergies/Adverse Reactions: Allergies Allergy/AdvReac Type Severity Reaction Status Date / Time Penicillins Allergy Hives Verified 04/23/21 12:13 Home Medications: Home Meds Buprenorphine [Subutex] 16 mg SL DAILY 04/23/21 [History] Dicyclomine HCl 20 mg PO DAILY 04/23/21 [History] Escitalopram [Lexapro] 20 mg PO DAILY 04/23/21 [History] No122/Iron/Folic Acid [ Multi Tablet] 1 tab PO DAILY 04/23/21 [History] hydrOXYzine HCL [Atarax] 25 mg PO Q6H PRN 04/23/21 [History] Past Medical History - Past Health History Medical/Surgical History: Denies Medical/Surgical History HEENT History: Reports: None Cardiovascular History: Reports: None Respiratory History: Reports: None Gastrointestinal History: Reports: Irritable Bowel Syndrome, Other (See Below) Other Gastrointestinal History: Ulcerative Colitis as a young kid Genitourinary History: Reports: UTI, Recurrent 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 Para: 2 LMP (Approximate): Musculoskeletal History: Reports: Other (See Below) (Scoliosis) Neurological History: Reports: None Psychiatric History: Reports: Addiction, Anxiety, OCD, Other (See Below) Other Psychiatric History: History of addiction- currently taking subutex Endocrine/Metabolic History: Reports: None Hematologic History: Reports: Anemia Immunologic History: Reports: None Oncologic (Cancer) History: Reports: None Dermatologic History: Reports: Other (See Below) (Acne) - Infectious Disease History Infectious Disease History: Reports: Chicken Pox - Past Surgical History Head Surgeries/Procedures: Reports: None HEENT Surgical History: Reports: None Cardiovascular Surgical History: Reports: None Respiratory Surgical History: Reports: None GI Surgical History: Reports: None Other GI Surgeries/Procedures: IBS Endocrine Surgical History: Reports: None Neurological Surgical History: Reports: None Musculoskeletal Surgical History: Reports: None Dermatological Surgical History: Reports: None Social & Family History - Family History Family Medical History: No Pertinent Family History - Tobacco Use Tobacco Use Status *Q: Never Tobacco User - Caffeine Use Caffeine Use: Reports: None - Alcohol Use Alcohol Use History: No - Recreational Drug Use Recreational Drug Use: No Drug Use in Last 12 Months: No H&P Review of Systems - Review of Systems: Review Of Systems: Comprehensive ROS is negative, except as noted in HPI. General: Reports: No Symptoms HEENT: Reports: No Symptoms Pulmonary: Reports: No Symptoms Cardiovascular: Reports: No Symptoms Gastrointestinal: Reports: No Symptoms Genitourinary: Reports: No Symptoms Musculoskeletal: Reports: No Symptoms Skin: Reports: No Symptoms Psychiatric: Reports: No Symptoms Neurological: Reports: No Symptoms Hematologic/Lymphatic: Reports: No Symptoms Immunologic: Reports: No Symptoms L&D Exam - Exam Exam: See Below - Vital Signs Vital Signs: VSS, afebrile. See flowsheet. Weight: 126 lb - OB Specific Fundal Height In cm: 36 Contraction Duration (sec): 2-3 Contraction Frequency (min): 90-120 Contraction Intensity: Moderate to Strong Movement: Active Heart Tones: Present Heart Tones per Min: 135 Heart Rate (FHR) Variability: Moderate (6-25 bmp) Presentation: Vertex (via SVE) - Tellez Score Tellez Score Cervix Position: Posterior Tellez Score Consistency: Soft Tellez Score Effacement: >80% Tellez Score Dilation: > 5 cm Tellez Score Infant's Station: -1 ,0 Tellez Score Total: 10 - Exam General: Alert, Oriented, Cooperative HEENT: Conjunctiva Clear, Hearing Intact, Mucosa Moist & [place], TMs Clear, PERRLA Neck: Supple, Trachea Midline Lungs: Clear to Auscultation, Normal Respiratory Effort Cardiovascular: Regular Rate, Regular Rhythm GI/Abdominal Exam: Normal Bowel Sounds, Soft, Non-Tender, No Organomegaly, No Distention Rectal Exam: Deferred Genitourinary: Normal external exam, Normal bimanual exam, Cervical dilitation (5-6/90/-1, soft, posterior), Enlarged uterus (Gravid uterus) Back Exam: Normal Inspection, Full Range of Motion Extremities: Normal Inspection, Normal Range of Motion, Non-Tender, No Pedal Edema, Normal Capillary Refill Skin: Warm, Dry, Intact Neurological: Cranial Nerves Intact, Reflexes Equal Bilateral Psychiatric: Alert, Normal Affect, Normal Mood - Problem List (1) Uterine contractions SNOMED Code(s): 964389096 ICD Code: [id number] - Status: Acute Priority: High Current Visit: Yes (2) 37 weeks gestation of SNOMED Code(s): 38264300 ICD Code: Z3A.37 - 37 WEEKS GESTATION OF Status: Acute Priority: High Current Visit: Yes Problem List Initiated/Reviewed/Updated: Yes Assessment/Plan Comment:: Admit for observation in anticipation of of term viable . SVE 5-6/100/-1, soft, posterior. FHR Cat II. Spontaneous contractions noted. Expectant management, reassess cervical dilation ~4:00 pm or sooner if indicated. May ambulate and hydrotherapy as desired after reactive CAT I NST achieved; repeat NST per orders. May receive epidural now. See new orders. Dr. Wan notified and agreeable with POC.
[2021-04-23] MEDS ORDERED: fentaNYL 100 MCG/2 ML SDV ONE (12:49)
[2021-04-23] MEDS ORDERED: Ropivacaine HCl/PF 200 ML ONE (12:50)
[2021-04-23] MEDS ORDERED: Ropivacaine 0.2% PF 2 MG/ML 20 ML SDV ONE (12:50)
[2021-04-23] MEDS ORDERED: Oxytocin/0.9 % Sodium Chloride 30 UNIT/500 ML BAG ONE (13:45)
--- NOTE | 2021-04-23 13:47 | PCM.PREANE ---
Preanesthetic Assessment - Physical Assessment Height: 5 ft 4 in Weight: 126 lb ASA Class: 2E Mental Status: Alert & Oriented x3 Airway Class: Mallampati = 2 Dentition: Reports: Normal Dentition ROM/Head Extension: Full Lungs: Normal Respiratory Effort Cardiovascular: Regular Rhythm - Lab Values: Laboratory Last Values WBC 7.04 K/uL (4.0-11.0) 04/23/21 12:04 RBC 3.90 M/uL (4.30-5.90) L 04/23/21 12:04 Hgb 10.6 g/dL (12.0-16.0) L 04/23/21 12:04 Hct 32.9 % (36.0-46.0) L 04/23/21 12:04 MCV 84.4 fL (80.0-98.0) 04/23/21 12:04 MCH 27.2 pg (27.0-32.0) 04/23/21 12:04 MCHC 32.2 g/dL (31.0-37.0) 04/23/21 12:04 RDW Std Deviation 42.7 fl (28.0-62.0) 04/23/21 12:04 RDW Coeff of [place] 14 % (11.0-15.0) 04/23/21 12:04 Plt Count 192 K/uL (150-400) 04/23/21 12:04 MPV 11.70 fL (7.40-12.00) 04/23/21 12:04 Nucleated RBC % 0.0 /100WBC 04/23/21 12:04 Nucleated RBCs # 0 K/uL 04/23/21 12:04 SARS-CoV-2 RNA (AGUSTO) NEGATIVE (NEGATIVE) 04/23/21 12:17 - Allergies Allergies/Adverse Reactions: Allergies Allergy/AdvReac Type Severity Reaction Status Date / Time Penicillins Allergy Hives Verified 04/23/21 12:13 - Anesthesia Plan Pre-Op Medication Ordered: None - Acknowledgements Anesthesia Type Planned: Epidural Pt an Appropriate Candidate for the Planned Anesthesia: Yes Alternatives and Risks of Anesthesia Discussed w Pt/Guardian: Yes Pt/Guardian Understands and Agrees with Anesthesia Plan: Yes Additional Comments: called for labor epidural in G3 8 cm without distress par no questions consent signed Hx IBS, narcotic use on 16mg bupranorphine a day PreAnesthesia Questionnaire - Past Health History Medical/Surgical History: Denies Medical/Surgical History HEENT History: Reports: None Cardiovascular History: Reports: None Respiratory History: Reports: None Gastrointestinal History: Reports: Irritable Bowel Syndrome, Other (See Below) Other Gastrointestinal History: Ulcerative Colitis as a young kid Genitourinary History: Reports: UTI, Recurrent 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: Musculoskeletal History: Reports: Other (See Below) (Scoliosis) Neurological History: Reports: None Psychiatric History: Reports: Addiction, Anxiety, OCD, Other (See Below) Other Psychiatric History: History of addiction- currently taking subutex Endocrine/Metabolic History: Reports: None Hematologic History: Reports: Anemia Immunologic History: Reports: None Oncologic (Cancer) History: Reports: None Dermatologic History: Reports: Other (See Below) (Acne) - Infectious Disease History Infectious Disease History: Reports: Chicken Pox - Past Surgical History Head Surgeries/Procedures: Reports: None HEENT Surgical History: Reports: None Cardiovascular Surgical History: Reports: None Respiratory Surgical History: Reports: None GI Surgical History: Reports: None Other GI Surgeries/Procedures: IBS Endocrine Surgical History: Reports: None Neurological Surgical History: Reports: None Musculoskeletal Surgical History: Reports: None Dermatological Surgical History: Reports: None - SUBSTANCE USE Tobacco Use Status *Q: Never Tobacco User Recreational Drug Use History: No - HOME MEDS Home Medications: Home Meds Buprenorphine [Subutex] 16 mg SL DAILY 04/23/21 [History] Dicyclomine HCl 20 mg PO DAILY 04/23/21 [History] Escitalopram [Lexapro] 20 mg PO DAILY 04/23/21 [History] No122/Iron/Folic Acid [ Multi Tablet] 1 tab PO DAILY 04/23/21 [History] hydrOXYzine HCL [Atarax] 25 mg PO Q6H PRN 04/23/21 [History] - CURRENT (IN HOUSE) MEDS Current Meds: Current Medications Butorphanol Tartrate (Butorphanol 1 Mg/Ml Sdv) 1 mg IVPUSH Q1H PRN PRN Reason: Pain (severe 7-10) Carboprost Tromethamine (Carboprost Tromethamine 250 Mcg/1 Ml Amp) 250 mcg IM ASDIRECTED PRN PRN Reason: Post Hemorrhage Oxytocin/Sodium Chloride (Oxytocin 30 Unit/500 Ml-Ns) 30 unit in 500 mls @ 500 mls/hr IV TITRATE CLAUDIA Tranexamic Acid 1,000 mg/ (Sodium Chloride) 110 mls @ 660 mls/hr IV ONETIME PRN PRN Reason: Bleeding Lactated Ringer's (Ringers, Lactated) 1,000 mls @ 150 mls/hr IV ASDIRECTED CLAUDIA Last Admin: 04/23/21 12:58 Dose: 999 mls/hr Documented by: Oxytocin/Sodium Chloride (Oxytocin 30 Unit/500 Ml-Ns) 30 unit in 500 mls @ 2 mls/hr IV TITRATE [facility]; Protocol Lidocaine HCl (Lidocaine 1% 50 Ml Mdv) 50 ml INJECT ONETIME PRN PRN Reason: Laceration repair Methylergonovine Maleate (Methylergonovine 0.2 Mg/1 Ml Amp) 0.2 mg IM ASDIRECTED PRN PRN Reason: Post Hemorrhage Misoprostol (Misoprostol 200 Mcg Tab) 200 mcg PO ONETIME PRN PRN Reason: Post Hemorrhage Misoprostol (Misoprostol 25 Mcg (1/4 Of 100 Mcg) Tab) 25 mcg VAG ONETIME PRN PRN Reason: Cervical Ripening Nalbuphine HCl (Nalbuphine 10 Mg/1 Ml Vial) 10 mg IVPUSH Q1H PRN PRN Reason: Pain (severe 7-10) Sodium Chloride (Sodium Chloride 0.9% 10 Ml Syringe) 10 ml FLUSH ASDIRECTED PRN PRN Reason: Keep Vein Open Sodium Chloride (Sodium Chloride 0.9% 2.5 Ml Syringe) 2.5 ml FLUSH ASDIRECTED PRN PRN Reason: Keep Vein Open Sodium Chloride (Sodium Chloride 0.9% 10 Ml Sdv) 10 ml IV ASDIRECTED PRN PRN Reason: IV Use Sterile Water (Water For Irrigation,Sterile 1,000 Ml Container) 1,000 ml IRR ASDIRECTED PRN PRN Reason: delivery Terbutaline Sulfate (Terbutaline 1 Mg/Ml Sdv) 0.25 mg SUBCUT ASDIRECTED PRN PRN Reason: Tacysystole Discontinued Medications Fentanyl (Fentanyl 100 Mcg/2 Ml Sdv) Confirm Administered Dose 100 mcg .ROUTE .STK-MED ONE Stop: 04/23/21 12:50 Ropivacaine (Naropin 0.2%) Confirm Administered Dose 200 mls @ as directed .ROUTE .STK-MED ONE Stop: 04/23/21 12:51 Ropivacaine (Ropivacaine 0.2% Pf 2 Mg/Ml 20 Ml Sdv) Confirm Administered Dose 20 ml .[address] .[facility] ONE Stop: 04/23/21 12:51
--- NOTE | 2021-04-23 13:51 | PCM.SN.2 ---
- Free Text/Narrative Note: LABOR EPIDURAL PROCEDURE NOTE LLD sterile prep draped local L2-3 18 g [place] POS JASWINDER no csf, blood, or parethesias cath in 3 cm taped test dose no complications
[2021-04-23] MEDS ORDERED: Benzocaine/Menthol 20%-0.5% Spray 78 GM Cannister TOP PRN (18:18)
[2021-04-23] MEDS ORDERED: Ibuprofen 400 MG Tab PO PRN (18:18)
[2021-04-23] MEDS ORDERED: Bisacodyl 10 MG Supp RECTAL PRN (18:18)
[2021-04-23] MEDS ORDERED: Acetaminophen 500 MG Tab PO PRN ×2 (18:18)
[2021-04-23] MEDS ORDERED: Witch Hazel Medicated Pads 40/Jar TOP PRN (18:18)
[2021-04-23] MEDS ORDERED: Lanolin 100% Cream 7 GM Tube TOP PRN (18:18)
--- NOTE | 2021-04-23 18:21 | PCM.DEL ---
L & D Note - General Info Date of Service: 04/23/21 Mother's Due Date: 05/10/21 - Delivery Note Labor: Spontaneous, Augmented by ARM Delivery Outcome: Livebirth Delivery Method: Spontaneous Vaginal Delivery-Single Delivery Mode: Spontaneous Presentation: Left Occiput Anterior (PRISCILA) (via SVE) Nuchal Cord: Present (Right arm, reduced during of body.) Anesthesia Type: Epidural Amniotic Fluid Description: Clear Episiotomy Type: None Laceration: 1st Degree Suture type: Vicryl Placenta: Intact, Spontaneous Cord: 3 Vessels Estimated Blood Loss: 300 Resuscitation Needed: Yes [place]: Suctioned, Bulb Syringe, Cathether, Stimulated, Warmed, [place] Used Provider: Reena Horn Score 1 min: 6 Score 5 min: 8 Second Stage Interventions: Reports: Encouragement Given, Pushing Effectively, Pushing, Knee Chest Position, Pushing, Pulls Own Legs Back Delivery Comments (Free Text/Narrative):: Chely is a 30 yo current S/P of viable term NBM at 37+4 weeks gestation (LYNDSAY(LMP) 05/10/2021) following spontaneous onset of labor augmented by AROM. A pos, RI, GBS neg. Pertinent medical history includes: anxiety, opioid addiction treated with long-term Subutex therapy (16 mg/day) Ax: Pencillin Medications: PNV, Subutex 16 mg PO daily, Dicyclomine 20 mg PO daily PRN IBS S/Ss, escitalopram 20 mg PO daily, hydroxyzine 25-50 mg PO q 6 hrs as needed for anxiety. Pain well controlled with BLE epidural analgesia. Dr. Wan called to unit for recurrent variable decelerations with pushing. head delivered slowly PRISCILA, patient declined into supine position with exaggerated knee-chest position, body delivered with next 2 pushes. Nuchal x1 to right arm, reduced during delivery of body. NBM placed to maternal abdomen, warmed, dried, stimulated with spontaneous weak cry. Umbilical cord immediately clamped x 2, cut by CNM. NBM brought to warmer for evaluation and resuscitation. Cord blood collected by CNM. 3-inch cord segment clamped and cut for cord blood gasses to be collected by RN. 1st degree perineal laceration hemostatic, repaired with 3.[address] Placenta birthed spontaneously ~ 6-7 min S/P NBM, intact, [place], 3VC. Uterus firm, U-1. Scant rubra lochia, no clots. EBL ~ 300 ml. APGARS 6/8. weight pending. - General Info Date of Service: 04/23/21 Admission Dx/Problem (Free Text): Admission Diagnosis/Problem Admission Diagnosis/Problem 04/23/21 12:15 Chely is a 30 yo at 37+4 weeks gestation (LYNDSAY(LMP) 05/10/2021) that presents to L&D today with C/O consistent uterine contractions increasing in intensity since this am. Patient seen in office 04/17/2021, unremarkable course. Reports adequate movement. Denies clemencia vaginal bleeding or LOF at this time. A pos, RI, GBS neg. EFW via [place] 6+ lbs. Pertinent medical history includes: anxiety, opioid addiction treated with long- term Subutex therapy (16 mg/day) Ax: [place] Medications: PNV, Subutex 16 mg PO daily, Dicyclomine 20 mg PO daily PRN IBS S/Ss, escitalopram 20 mg PO daily, hydroxyzine 25-50 mg PO q 6 hrs as needed for anxiety. Patient has no other complaints or concerns at this time. 04/23/21 12:20 Functional Status: Reports: Pain Controlled, Tolerating Diet - Review of Systems General: Reports: No Symptoms HEENT: Reports: No Symptoms Pulmonary: Reports: No Symptoms Cardiovascular: Reports: No Symptoms Gastrointestinal: Reports: No Symptoms Genitourinary: Reports: No Symptoms Musculoskeletal: Reports: No Symptoms Skin: Reports: No Symptoms Neurological: Reports: No Symptoms Psychiatric: Reports: No Symptoms - Patient Data Vitals - Most Recent: VSS, afebrile. See flowsheet. Weight - Most Recent: 126 lb Lab Results Last 24 Hours: Laboratory Results - last 24 hr 04/23/21 04/23/21 04/23/21 Range/Units 12:04 12:04 12:17 WBC 7.04 (4.0-11.0) K/uL RBC 3.90 L (4.30-5.90) M/uL Hgb 10.6 L (12.0-16.0) g/dL Hct 32.9 L (36.0-46.0) % MCV 84.4 (80.0-98.0) fL MCH 27.2 (27.0-32.0) pg MCHC 32.2 (31.0-37.0) g/dL RDW Std Deviation 42.7 (28.0-62.0) fl RDW Coeff of Miesha 14 (11.0-15.0) % Plt Count 192 (150-400) K/uL MPV 11.70 (7.40-12.00) fL Nucleated RBC % 0.0 /100WBC Nucleated RBCs # 0 K/uL SARS-CoV-2 RNA ([place]) NEGATIVE (NEGATIVE) Blood Type A POSITIVE Antibody Screen NEGATIVE Med Orders - Current: Current Medications Discontinued Medications Butorphanol Tartrate (Butorphanol 1 Mg/Ml Sdv) 1 mg IVPUSH Q1H PRN PRN Reason: Pain (severe 7-10) Carboprost Tromethamine (Carboprost Tromethamine 250 Mcg/1 Ml Amp) 250 mcg IM ASDIRECTED PRN PRN Reason: Post Hemorrhage Fentanyl (Fentanyl 100 Mcg/2 Ml Sdv) Confirm Administered Dose 100 mcg .ROUTE .STK-MED ONE Stop: 04/23/21 12:50 Oxytocin/Sodium Chloride (Oxytocin 30 Unit/500 Ml-Ns) 30 unit in 500 mls @ 500 mls/hr IV TITRATE CLAUDIA Tranexamic Acid 1,000 mg/ (Sodium Chloride) 110 mls @ 660 mls/hr IV ONETIME PRN PRN Reason: Bleeding Lactated Ringer's (Ringers, Lactated) 1,000 mls @ 150 mls/hr IV ASDIRECTED CLAUDIA Last Admin: 04/23/21 13:55 Dose: 150 mls/hr Documented by: Oxytocin/Sodium Chloride (Oxytocin 30 Unit/500 Ml-Ns) 30 unit in 500 mls @ 2 mls/hr IV TITRATE CLAUDIA; Protocol Ropivacaine (Naropin 0.2%) Confirm Administered Dose 200 mls @ as directed .ROUTE .STK-MED ONE Stop: 04/23/21 12:51 Oxytocin/Sodium Chloride (Oxytocin 30 Unit/500 Ml-Ns) Confirm Administered Dose 30 unit in 500 mls @ as directed .ROUTE .STK-MED ONE Stop: 04/23/21 13:46 Lidocaine HCl (Lidocaine 1% 50 Ml Mdv) 50 ml INJECT ONETIME PRN PRN Reason: Laceration repair Methylergonovine Maleate (Methylergonovine 0.2 Mg/1 Ml Amp) 0.2 mg IM ASDIRECTED PRN PRN Reason: Post Hemorrhage Misoprostol (Misoprostol 200 Mcg Tab) 200 mcg PO ONETIME PRN PRN Reason: Post Hemorrhage Misoprostol (Misoprostol 25 Mcg (1/4 Of 100 Mcg) Tab) 25 mcg VAG ONETIME PRN PRN Reason: Cervical Ripening Nalbuphine HCl (Nalbuphine 10 Mg/1 Ml Vial) 10 mg IVPUSH Q1H PRN PRN Reason: Pain (severe 7-10) Ropivacaine (Ropivacaine 0.2% Pf 2 Mg/Ml 20 Ml Sdv) Confirm Administered Dose 20 ml .ROUTE .[facility] ONE Stop: 04/23/21 12:51 Sodium Chloride (Sodium Chloride 0.9% 10 Ml Syringe) 10 ml FLUSH ASDIRECTED PRN PRN Reason: Keep Vein Open Sodium Chloride (Sodium Chloride 0.9% 2.5 Ml Syringe) 2.5 ml FLUSH ASDIRECTED PRN PRN Reason: Keep Vein Open Sodium Chloride (Sodium Chloride 0.9% 10 Ml Sdv) 10 ml IV ASDIRECTED PRN PRN Reason: IV Use Sterile Water (Water For Irrigation,Sterile 1,000 Ml Container) 1,000 ml IRR ASDIRECTED PRN PRN Reason: delivery Terbutaline Sulfate (Terbutaline 1 Mg/Ml Sdv) 0.25 mg SUBCUT ASDIRECTED PRN PRN Reason: Tacysystole - Exam General: Alert, Oriented, Cooperative, No Acute Distress HEENT: Pupils Equal, Mucous Membr. Moist/[place] Neck: Supple Lungs: Clear to Auscultation, Normal Respiratory Effort Cardiovascular: Regular Rate, Regular Rhythm GI/Abdominal Exam: Normal Bowel Sounds, Soft, Non-Tender, No Organomegaly, No Distention (Female) Exam: Normal External Exam, Enlarged Uterus ( uterus, firm U-1), Vaginal Bleeding (Scant rubra lochia) Back Exam: Normal Inspection, Full Range of Motion Extremities: Normal Inspection, Normal Range of Motion, Non-Tender, No Pedal Edema, Normal Capillary Refill Skin: Warm, Dry, Intact Wound/Incisions: No Drainage Neurological: No New Focal Deficit (BLE epidural in place) Psy/Mental Status: Alert, Normal Affect, Normal Mood - Problem List & Annotations (1) (spontaneous vaginal delivery) SNOMED Code(s): 402779533 Code(s): O80 - ENCOUNTER FOR FULL-TERM UNCOMPLICATED DELIVERY Status: Acute Priority: High Current Visit: Yes (2) complicated by subutex maintenance, antepartum SNOMED Code(s): 51923472 Code(s): O99.320 - DRUG USE COMPLICATING , UNSPECIFIED TRIMESTER; F11.20 - OPIOID DEPENDENCE, UNCOMPLICATED Status: Acute Priority: High Current Visit: Yes (3) Lactating mother SNOMED Code(s): 250787790, 664239975 Code(s): Z39.1 - ENCOUNTER FOR CARE AND EXAMINATION OF LACTATING MOTHER Status: Acute Priority: High Current Visit: Yes - Problem List Review Problem List Initiated/Reviewed/Updated: Yes - My Orders Last 24 Hours: My Active Orders 04/23/21 12:04 RPR (SYPHILIS SERO) W/ RFLX [REF] Routine 04/23/21 Dinner Regular Diet [DIET] 04/23/21 18:18 Patient Status [ADT] Routine May Shower [RC] ASDIRECTED Up ad Nely [RC] ASDIRECTED Vital Signs [RC] PER UNIT ROUTINE BLOOD GAS ARTERIAL UMBILICAL [BG] Stat BLOOD GAS VENOUS UMBILICAL [BG] Stat Acetaminophen [Tylenol Extra Strength] 1,000 mg PO Q4H PRN Acetaminophen [Tylenol Extra Strength] 500 mg PO Q4H PRN Benzocaine/Menthol [Dermoplast Pain Relief 20%-0.5% [place]] 78 gm TOP ASDIRECTED PRN Ibuprofen [Motrin] 400 mg PO Q4H PRN Ibuprofen [Motrin] 800 mg PO Q6H PRN Lanolin [Lansinoh HPA] See Dose Instructions TOP ASDIRECTED PRN bisacodyL [Dulcolax] 10 mg RECTAL ONETIME PRN witch Julio [Tucks] 1 pad TOP ASDIRECTED PRN Assess Lochia [WOMSER] Per Unit Routine Assess Uterine Involution [WOMSER] Per Unit Routine Peripheral IV Discontinue [OM.PC] Routine Resuscitation Status Routine 04/23/21 18:19 Ice Therapy [OM.PC] Per Unit Routine Perineal Care [OM.PC] Per Unit Routine Sitz Bath [OM.PC] Per Unit Routine 04/23/21 18:20 Cooling Warming Measures [RC] ASDIRECTED 04/24/21 05:11 HEMOGLOBIN/HEMATOCRIT,HH [HEME] Timed 04/24/21 09:00 Docusate Sodium [Colace] 100 mg PO Q12H Iron Polysaccharides Complex [Ferrex 150] 150 mg PO DAILY - Plan Plan:: Admit for inpatient unit S/P of term viable NBM. D/C epidural now, may ambulate in 2-4 hours with assistance. If patient has not voided within 6 hours , may I&O cath and notify provider. Resume regular diet. Continue medications as prescribed. See new orders. Dr. Wan notified and agreeable with POC.
[2021-04-23] MEDS: Ibuprofen 800 MG Tab PO PRN (23:09)
[2021-04-24] MEDS: Ibuprofen 800 MG Tab PO PRN (05:38)
--- NOTE | 2021-04-24 07:04 | PCM48HPAN ---
Post Anesthesia Note - EVALUATION WITHIN 48HRS OF ANESTHETIC Vital Signs in Normal Range: Yes Patient Participated in Evaluation: Yes Respiratory Function Stable: Yes Airway Patent: Yes Cardiovascular Function Stable: Yes Hydration Status Stable: Yes Pain Control Satisfactory: Yes Nausea and Vomiting Control Satisfactory: Yes Mental Status Recovered: Yes Vital Signs: Last Vital Signs Temp 36.4 C 04/23/21 23:10 Pulse 77 04/23/21 23:10 Resp BP 124/79 04/23/21 23:10 Pulse Ox
[2021-04-24 08:26] VITALS: BP 116/80; PULSE 57
[2021-04-24] MEDS ORDERED: Docusate Sodium 100 MG Cap PO SCH (09:00)
[2021-04-24] MEDS ORDERED: Iron Polysaccharides Complex 150 MG Cap PO SCH (09:00)
--- NOTE | 2021-04-24 09:01 | PCM.DCSUM1 ---
Discharge Summary - Hospital Course Diagnosis: Stroke: No - Discharge Data Discharge Date: 04/24/21 Discharge Disposition: Home, Self-Care 01 Condition: Good - Referral to Home Health Primary Care Physician: Abdiel Wan MD - Patient Instructions Diet: Usual Diet as Tolerated Activity: As Tolerated Driving: Do Not Drive Showering/Bathing: May Shower - Discharge Plan Home Medications: Home Meds Buprenorphine [Subutex] 16 mg SL DAILY 04/23/21 [History] Dicyclomine HCl 20 mg PO DAILY 04/23/21 [History] Escitalopram [Lexapro] 20 mg PO DAILY 04/23/21 [History] No122/Iron/Folic Acid [ Multi Tablet] 1 tab PO DAILY 04/23/21 [History] hydrOXYzine HCL [Atarax] 25 mg PO Q6H PRN 04/23/21 [History] - Discharge Summary/Plan Comment DC Time >30 min.: Yes - General Info Date of Service: 04/24/21 Functional Status: Reports: Pain Controlled - Review of Systems General: Reports: No Symptoms HEENT: Reports: No Symptoms Pulmonary: Reports: No Symptoms Cardiovascular: Reports: No Symptoms Gastrointestinal: Reports: No Symptoms Genitourinary: Reports: No Symptoms Musculoskeletal: Reports: No Symptoms Skin: Reports: No Symptoms Neurological: Reports: No Symptoms Psychiatric: Reports: No Symptoms - Patient Data Vitals - Most Recent: Last Vital Signs Temp 35.8 C L 04/24/21 08:00 Pulse 57 L 04/24/21 08:00 Resp 16 04/24/21 08:00 BP 116/80 04/24/21 08:00 Pulse Ox 99 04/24/21 08:00 Weight - Most Recent: 57.153 kg Lab Results - Last 24 hrs: Laboratory Results - last 24 hr 04/23/21 04/23/21 04/23/21 Range/Units 12:04 12:04 12:17 WBC 7.04 (4.0-11.0) K/uL RBC 3.90 L (4.30-5.90) M/uL Hgb 10.6 L (12.0-16.0) g/dL Hct 32.9 L (36.0-46.0) % MCV 84.4 (80.0-98.0) fL MCH 27.2 (27.0-32.0) pg MCHC 32.2 (31.0-37.0) g/dL RDW Std Deviation 42.7 (28.0-62.0) fl RDW Coeff of Miesha 14 (11.0-15.0) % Plt Count 192 (150-400) K/uL MPV 11.70 (7.40-12.00) fL Nucleated RBC % 0.0 /100WBC Nucleated RBCs # 0 K/uL Cord ABG pH (7.18-7.38) Cord ABG Base Excess (-10--2) Cord VBG pH (7.25-7.45) Cord VBG Base Excess (-10--2) SARS-CoV-2 RNA ([place]) NEGATIVE (NEGATIVE) Blood Type A POSITIVE Antibody Screen NEGATIVE 04/23/21 04/24/21 Range/Units 17:55 05:25 WBC (4.0-11.0) K/uL RBC (4.30-5.90) M/uL Hgb 9.3 L (12.0-16.0) g/dL Hct 28.5 L (36.0-46.0) % MCV (80.0-98.0) fL MCH (27.0-32.0) pg MCHC (31.0-37.0) g/dL RDW Std Deviation (28.0-62.0) fl RDW Coeff of Miesha (11.0-15.0) % Plt Count (150-400) K/uL MPV (7.40-12.00) fL Nucleated RBC % /100WBC Nucleated RBCs # K/uL Cord ABG pH 7.249 (7.18-7.38) Cord ABG Base Excess -5 (-10--2) Cord VBG pH 7.298 (7.25-7.45) Cord VBG Base Excess -6 (-10--2) SARS-CoV-2 RNA ([place]) (NEGATIVE) Blood Type Antibody Screen Med Orders - Current: Current Medications Acetaminophen (Acetaminophen 500 Mg Tab) 500 mg PO Q4H PRN PRN Reason: Pain (mild 1-3) Acetaminophen (Acetaminophen 500 Mg Tab) 1,000 mg PO Q4H PRN PRN Reason: Pain (mild 1-3) Benzocaine/Menthol (Benzocaine/Menthol 20%-0.5% [place] 78 Gm Cannister) 78 gm TOP ASDIRECTED PRN PRN Reason: Perineal Comfort Measure Bisacodyl (Bisacodyl 10 Mg Supp) 10 mg RECTAL ONETIME PRN PRN Reason: Constipation Docusate Sodium (Docusate Sodium 100 Mg Cap) 100 mg PO Q12H [facility] Emollient Ointment (Lanolin 100% Cream 7 Gm Tube) 0 gm TOP ASDIRECTED PRN PRN Reason: Sore Nipples Ibuprofen (Ibuprofen 400 Mg Tab) 400 mg PO Q4H PRN PRN Reason: Pain (mild 1-3) Ibuprofen (Ibuprofen 800 Mg Tab) 800 mg PO Q6H PRN PRN Reason: Pain (mild 1-3) Last Admin: 04/24/21 05:38 Dose: 800 mg Documented by: Polysaccharide Iron Complex (Iron Polysaccharides Complex 150 Mg Cap) 150 mg PO DAILY [facility] Witch Samra (Witch Samra Medicated Pads 40/Jar) 1 pad TOP ASDIRECTED PRN PRN Reason: comfort care Discontinued Medications Butorphanol Tartrate (Butorphanol 1 Mg/Ml Sdv) 1 mg IVPUSH Q1H PRN PRN Reason: Pain (severe 7-10) Carboprost Tromethamine (Carboprost Tromethamine 250 Mcg/1 Ml Amp) 250 mcg IM ASDIRECTED PRN PRN Reason: Post Hemorrhage Fentanyl (Fentanyl 100 Mcg/2 Ml Sdv) Confirm Administered Dose 100 mcg .ROUTE .[facility] ONE Stop: 04/23/21 12:50 Oxytocin/Sodium Chloride (Oxytocin 30 Unit/500 Ml-Ns) 30 unit in 500 mls @ 500 mls/hr IV TITRATE [facility] Last Admin: 04/23/21 17:57 Dose: 500 mls/hr Documented by: Tranexamic Acid 1,000 mg/ (Sodium Chloride) 110 mls @ 660 mls/hr IV ONETIME PRN PRN Reason: Bleeding Lactated Ringer's (Ringers, Lactated) 1,000 mls @ 150 mls/hr IV ASDIRECTED [facility] Last Admin: 04/23/21 13:55 Dose: 150 mls/hr Documented by: Oxytocin/Sodium Chloride (Oxytocin 30 Unit/500 Ml-Ns) 30 unit in 500 mls @ 2 mls/hr IV TITRATE [facility]; Protocol Ropivacaine (Naropin 0.2%) Confirm Administered Dose 200 mls @ as directed .ROUTE .[employer] ONE Stop: 04/23/21 12:51 Oxytocin/Sodium Chloride (Oxytocin 30 Unit/500 Ml-Ns) Confirm Administered Dose 30 unit in 500 mls @ as directed .ROUTE .[employer] ONE Stop: 04/23/21 13:46 Lidocaine HCl (Lidocaine 1% 50 Ml Mdv) 50 ml INJECT ONETIME PRN PRN Reason: Laceration repair Methylergonovine Maleate (Methylergonovine 0.2 Mg/1 Ml Amp) 0.2 mg IM ASDIRECTED PRN PRN Reason: Post Hemorrhage Misoprostol (Misoprostol 200 Mcg Tab) 200 mcg PO ONETIME PRN PRN Reason: Post Hemorrhage Misoprostol (Misoprostol 25 Mcg (1/4 Of 100 Mcg) Tab) 25 mcg VAG ONETIME PRN PRN Reason: Cervical Ripening Nalbuphine HCl (Nalbuphine 10 Mg/1 Ml Vial) 10 mg IVPUSH Q1H PRN PRN Reason: Pain (severe 7-10) Ropivacaine (Ropivacaine 0.2% Pf 2 Mg/Ml 20 Ml Sdv) Confirm Administered Dose 20 ml .ROUTE .[employer] ONE Stop: 04/23/21 12:51 Sodium Chloride (Sodium Chloride 0.9% 10 Ml Syringe) 10 ml FLUSH ASDIRECTED PRN PRN Reason: Keep Vein Open Sodium Chloride (Sodium Chloride 0.9% 2.5 Ml Syringe) 2.5 ml FLUSH ASDIRECTED PRN PRN Reason: Keep Vein Open Sodium Chloride (Sodium Chloride 0.9% 10 Ml Sdv) 10 ml IV ASDIRECTED PRN PRN Reason: IV Use Sterile Water (Water For Irrigation,Sterile 1,000 Ml Container) 1,000 ml IRR ASDIRECTED PRN PRN Reason: delivery Terbutaline Sulfate (Terbutaline 1 Mg/Ml Sdv) 0.25 mg SUBCUT ASDIRECTED PRN PRN Reason: Tacysystole - Exam General: Reports: Alert, Oriented HEENT: Reports: Pupils Equal, Pupils Reactive, EOMI, Mucous Membr. Moist/[place] Neck: Reports: Supple Lungs: Reports: Clear to Auscultation, Normal Respiratory Effort Cardiovascular: Reports: Regular Rate, Regular Rhythm GI/Abdominal Exam: Normal Bowel Sounds, Soft, Non-Tender, No Organomegaly, No Distention, No Abnormal Bruit, No Mass, Pelvis Stable (Female) Exam: Normal External Exam, Normal Speculum Exam, Normal Bimanual Exam Rectal (Female) Exam: Normal Exam, Normal Rectal Tone Back Exam: Reports: Normal Inspection, Full Range of Motion Extremities: Normal Inspection, Normal Range of Motion, Non-Tender, No Pedal Edema, Normal Capillary Refill Skin: Reports: Warm, Dry, Intact Wound/Incisions: Reports: Healing Well Neurological: Reports: No New Focal Deficit Psy/Mental Status: Reports: Alert, Normal Affect, Normal Mood
== END 2021-04-24 11:07 | disposition home or self-care (01) | DRG 560 ==
LOC: MW.OBCHECK 11:20 → MW.OB 12:13 → OBSVTOIN 17:55 → MW.OB 17:55
PROVIDERS: ADMIT Obstetrics & Gynecology; ATTEND Obstetrics & Gynecology
PROC: 10E0XZZ Delivery of Products of Conception, External Approach (ICD-10-PCS; principal; 2021-04-23)
PROC: 10907ZC Drainage of Amniotic Fluid, Therapeutic from Products of Conception, Via Natural or Artificial Opening (ICD-10-PCS; 2021-04-23)
PROC: 0HQ9XZZ Repair Perineum Skin, External Approach (ICD-10-PCS; 2021-04-23)
PROC: 3E0R3BZ Introduction of Anesthetic Agent into Spinal Canal, Percutaneous Approach (ICD-10-PCS; 2021-04-23)
PROC: 00HU33Z Insertion of Infusion Device into Spinal Canal, Percutaneous Approach (ICD-10-PCS; 2021-04-23)
DX: O99.344 Other mental disorders complicating childbirth (principal); Z37.0 Single live birth; F41.9 Anxiety disorder, unspecified; F42.9 Obsessive-compulsive disorder, unspecified; O99.02 Anemia complicating childbirth; D64.9 Anemia, unspecified; O99.62 Diseases of the digestive system complicating childbirth; Z20.822 Contact with and (suspected) exposure to COVID-19; K58.9 Irritable bowel syndrome, unspecified; O70.0 First degree perineal laceration during delivery; O69.81X0 Labor and delivery complicated by cord around neck, without compression, not applicable or unspecified; O99.324 Drug use complicating childbirth; F11.20 Opioid dependence, uncomplicated; Z88.0 Allergy status to penicillin; Z3A.37 37 weeks gestation of pregnancy
CPT/HCPCS: 36415; 59025; 59409; 82803; 85014; 85018; 85027; 86592; 86850; 86900; 86901; A9270-GY; J2590; J2795; J3010; J7120; U0002

== ENCOUNTER 2021-05-19 14:44 | Emergency (ER) | payer BC ==
[2021-05-19] MEDS ORDERED: Cefdinir 300 MG Cap PO ONE (16:25)
--- NOTE | 2021-05-19 16:30 | EDM.PDOC ---
ED HPI GENERAL MEDICAL PROBLEM - General Chief Complaint: Genitourinary Problem Stated Complaint: UTI Time Seen by Provider: 05/19/21 15:03 - History of Present Illness INITIAL COMMENTS - FREE TEXT/NARRATIVE: HISTORY AND PHYSICAL: History of present illness: This is a 31-year-old female who is 3 para 3 who just delivered on April 23 who presents ER today secondary to dysuria, frequency, urgency and the feeling that her bladder is full. Patient reports that she saw her primary care doctor several days ago and was empirically started on ciprofloxacin. Patient denies any recent fevers, shakes, chills, nausea, vomiting, diarrhea, abdominal pain, chest pain, shortness of breath. Patient denies any hematuria. Patient reports that she had multiple urinary tract infections in the past and this feels very similar to her prior UTIs. Patient reports that she has been taking ciprofloxacin without any significant relief in her symptoms. Review of systems: As per history of present illness and below otherwise all systems reviewed and negative. Past medical history: As per history of present illness and as reviewed below otherwise noncontributory. Surgical history: As per history of present illness and as reviewed below otherwise noncontributory. Social history: No reported history of drug abuse. Family history: As per history of present illness and as reviewed below otherwise noncontributory. Physical exam: This patient was seen and evaluated during the 2019 SARS-CoV-2 novel coronavirus pandemic period. Community viral transmission is ongoing at time of this encounter and the emergency department is operating under pandemic response procedures. Constitutional: Patient is oriented to person, place, and time. Appears well- developed and well-nourished. No distress. HEENT: Moist mucous membranes Head: Normocephalic and atraumatic Eyes: Right eye exhibits no discharge. Left eye exhibits no discharge. No scleral icterus Neck: Normal range of motion. No tracheal deviation present. Cardiovascular: Normal rate and regular rhythm. Pulmonary: Effort normal, no respiratory distress. Abd: Soft, nondistended, no rebound/guarding, no psoas or obturator signs, no tenderness at Mcberney's point, no Call's sign. Pt does not present with an exam that would be consistent with an acute surgical abdomen at this time. Post void residual: Musculoskeletal: Normal range of motion Neurologic: Alert and oriented to person, place and time. Skin: [place]cupine, warm and dry. Psychiatric: Normal mood and affect. Behavior is normal. Judgment and thought content normal. Nursing note and vital signs have been reviewed Diagnostics: UA reveals 6-8 WBCs per high-power field Therapeutics: We will change to Omnicef 300 mg twice a day x5 days. Assessment and plan: 31-year-old presents to the ER today with signs and symptoms consistent with a urinary tract infection. Patient reports that she has taken cephalosporins in the past. Patient will be given Omnicef 300 mg twice a day for 5 days. Patient has Pyridium at home. Reassessment at the time of disposition demonstrates that the patient is in no acute distress. The patient has remained stable throughout the entire ED visit and is without objective evidence for acute process requiring urgent intervention or hospitalization. The patient is stable for discharge, counseling is provided as documented above, discussed symptomatic treatment and specific conditions for return. I have spoken with the patient/caregiver and discussed todays findings, in addition to providing specific details for the plan of care. Questions are answered and there is agreement with the plan. Definitive disposition and diagnosis as appropriate pending reevaluation and review of above. Bladder Pain Score (Numeric/FACES): 5 - Related Data Allergies Allergy/AdvReac Type Severity Reaction Status Date / Time Penicillins Allergy Hives Verified 05/19/21 14:57 Home Meds: Home Meds Buprenorphine [Subutex] 16 mg SL DAILY 04/23/21 [History] Dicyclomine HCl 20 mg PO DAILY 04/23/21 [History] Escitalopram [Lexapro] 40 mg PO DAILY 04/23/21 [History] No122/Iron/Folic Acid [ Multi Tablet] 1 tab PO DAILY 04/23/21 [History] hydrOXYzine HCL [Atarax] 25 mg PO Q6H PRN 04/23/21 [History] Cefdinir 300 mg PO Q12HR #10 capsule 05/19/21 [Rx] Past Medical History - Past Health History Medical/Surgical History: Denies Medical/Surgical History HEENT History: Reports: None Cardiovascular History: Reports: None Respiratory History: Reports: None Gastrointestinal History: Reports: Irritable Bowel Syndrome, Other (See Below) Other Gastrointestinal History: Ulcerative Colitis as a young kid Genitourinary History: Reports: UTI, Recurrent CYCLE MANAGER History: Reports: Musculoskeletal History: Reports: Other (See Below) Neurological History: Reports: None Psychiatric History: Reports: Addiction, Anxiety, OCD, Other (See Below) Other Psychiatric History: History of addiction- currently taking subutex Endocrine/Metabolic History: Reports: None Hematologic History: Reports: Anemia Immunologic History: Reports: None Oncologic (Cancer) History: Reports: None Dermatologic History: Reports: Other (See Below) - Infectious Disease History Infectious Disease History: Reports: Chicken Pox - Past Surgical History Head Surgeries/Procedures: Reports: None HEENT Surgical History: Reports: None Cardiovascular Surgical History: Reports: None Respiratory Surgical History: Reports: None GI Surgical History: Reports: None Other GI Surgeries/Procedures: IBS Endocrine Surgical History: Reports: None Neurological Surgical History: Reports: None Musculoskeletal Surgical History: Reports: None Dermatological Surgical History: Reports: None Social & Family History - Family History Family Medical History: No Pertinent Family History - Tobacco Use Tobacco Use Status *Q: Current Every Day Tobacco User Years of Tobacco use: 8 Packs/Tins Daily: 0.5 - Caffeine Use Caffeine Use: Reports: None - Recreational Drug Use Recreational Drug Use: No ED ROS GENERAL - Review of Systems Review Of Systems: See Below ED EXAM, GENERAL - Physical Exam Exam: See Below Course - Vital Signs Last Recorded V/S: Last Vital Signs Temp 97.2 F 05/19/21 14:58 Pulse 65 05/19/21 14:58 Resp 16 05/19/21 14:58 BP 112/40 L 05/19/21 14:58 Pulse Ox 97 05/19/21 14:58 - Orders/Labs/Meds Orders: Active Orders 24 hr Category Date Time Status Bladder Scan [RC] ASDIRECTED Care 05/19/21 15:09 Active CULTURE URINE [MREF] Stat Lab 05/19/21 15:02 Received Labs: Laboratory Tests 05/19/21 Range/Units 15:02 Urine Color YELLOW Urine Appearance CLEAR Urine pH 6.0 (5.0-8.0) Ur Specific [place] >= 1.030 (1.001-1.035) Urine Protein NEGATIVE (NEGATIVE) mg/dL Urine Glucose (UA) NEGATIVE (NEGATIVE) mg/dL Urine Ketones NEGATIVE (NEGATIVE) mg/dL Urine Occult Blood SMALL H (NEGATIVE) Urine Nitrite NEGATIVE (NEGATIVE) Urine Bilirubin NEGATIVE (NEGATIVE) Urine Urobilinogen 0.2 (<2.0) EU/dL Ur Leukocyte Esterase NEGATIVE (NEGATIVE) Urine RBC 2-4 (0-2/HPF) Urine WBC 6-8 (0-5/HPF) Ur Epithelial Cells FEW (NONE-FEW) Urine Bacteria FEW (NEGATIVE) Urine Mucus LIGHT (NONE-MOD) Meds: Medications Discontinued Medications Generic Name Dose Route Start Last Admin Trade Name Jamesq PRN Reason Stop Dose Admin Cefdinir 300 mg 05/19/21 16:25 Cefdinir 300 Mg Cap PO 05/19/21 16:26 ONETIME ONE Departure - Departure Time of Disposition: 16:28 Disposition: Home, Self-Care 01 Condition: Good Clinical Impression: UTI, Urinary tract infectious disease - Discharge Information Instructions: Urinary Tract Infection, Adult Referrals: PCP,None [Primary Care Provider] - Additional Instructions: You were seen and evaluated in the ER today secondary to signs and symptoms c onsistent with a urinary tract infection. Please stop your ciprofloxacin and start cefdinir 300 mg twice a day for 5 days. Please make an appointment to follow-up with your doctor for repeat urinalysis. Return to the ER if you have any fevers or any new or concerning symptoms. The following information is given to patients seen in the emergency department who are being discharged to home. This information is to outline your options for follow-up care. We provide all patients seen in our emergency department with a follow-up referral. The need for follow-up, as well as the timing and circumstances, are variable depending upon the specifics of your emergency department visit. If you don't have a primary care physician on staff, we will provide you with a referral. We always advise you to contact your personal physician following an emergency department visit to inform them of the circumstance of the visit and for follow-up with them and/or the need for any referrals to a consulting specialist. The emergency department will also refer you to a specialist when appropriate. This referral assures that you have the opportunity for follow-up care with a specialist. All of these measure are taken in an effort to provide you with optimal care, which includes your follow-up. Under all circumstances we always encourage you to contact your private physician who remains a resource for coordinating your care. When calling for follow-up care, please make the office aware that this follow-up is from your recent emergency room visit. If for any reason you are refused follow-up, please contact the [facility] Emergency Department at and asked to speak to the emergency department charge nurse. [facility] [address] [place] [address] [facility] [address] [place] [id number] Sepsis Event Note (ED) - Evaluation Sepsis Screening Result: No Definite Risk - Focused Exam Vital Signs: Vital Signs Temp Pulse Resp BP Pulse Ox 05/19/21 14:58 97.2 F 65 16 112/40 L 97 - My Orders Last 24 Hours: My Active Orders 05/19/21 15:02 CULTURE URINE [MREF] Stat 05/19/21 15:09 Bladder Scan [RC] ASDIRECTED - Assessment/Plan Last 24 Hours: My Active Orders 05/19/21 15:02 CULTURE URINE [MREF] Stat 05/19/21 15:09 Bladder Scan [RC] ASDIRECTED
[2021-05-19 16:59] VITALS: BP 110/70; PULSE 62
== END 2021-05-19 16:56 | disposition home or self-care (01) ==
LOC: MW.ED 14:44
DX: N39.0 Urinary tract infection, site not specified (principal); Z88.0 Allergy status to penicillin; Z72.0 Tobacco use
CPT/HCPCS: 51798; 81001; 87086; 99283; A9270